=== PATIENT | male | born 1950 | race Caucasian/White ===

== ENCOUNTER 2016-11-25 10:33 | Emergency (ER) | payer OTHER ==
[~2016-11-25] VITALS: Ht 172.7 cm; Wt 81.5 kg
[~2016-11-25 10:33] MED LIST: CALCTAB94 PO; CARV6.252 PO; CLIN1CAP6 PO; FLUC100T2 PO; FOLI5CAP PO; FURO1TAB60 PO; HYDR-3516 PO; HYDR200T3 PO; JANT2TAB PO; LISI-519 PO; MULT-125 PO; OMEP20TA PO; PRAV40TA2 PO; PRED10 PO; SPIR25TA PO; TIZA4CAP3 PO; VENTAER INH; VITA100021 SL; [UNRECOGNIZED DRUG - CODE] TOPICAL
[2016-11-25 10:50] VITALS: BP 136/81; PULSE 87; RESP 20; TEMP 98.1; O2SAT 95
[2016-11-25] MEDS ORDERED: AZIT250T3 PO (11:05)
[2016-11-25] MEDS ORDERED: methylPREDNISolone SOD SUCC 125 MG/2 ML VIAL IVP ONE (12:00)
[2016-11-25] MEDS ORDERED: SODIUM CHLORIDE 0.9% FLUSH 10 ML FLUSH IVF PRN (12:00)
--- NOTE | 2016-11-25 12:04 | PD ---
HPI Chief Complaint: Cold / Flu Symptoms Time Seen by Provider: 11:50 Travel History International Travel<30 days: No Contact w/Intl Traveler<30days: No Traveled to known affect area: No History of Present Illness HPI 65-year-old male with history of CHF, stroke, CAD with stents, and DVT presents to the emergency room for evaluation of mildly productive cough, congestion for the past 4 days. Patient called his primary care physician at onset and was given a Z-Jose. States he finished the medication without any improvement in symptoms. He denies any subjective fevers. States he has problems with fluid on his lungs because of congestive heart failure. He was not given any other medications from his doctor. He has been taking [id number] cough drops. Reports associated chest pain and shortness of breath. Patient has chronic shortness of breath but it is worse than normal and now occurs at rest. States chest pain occurs with any movement or deep coughing. Patient drinks 7-8 beers per day. He has not smoked in over 20 years. 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 PFSH Past Medical History Arthritis: Yes Asthma: No Cancer: No Cardiovascular Problems: Yes High Cholesterol: No Chest Pain: No Congestive Heart Failure: No COPD: No Cerebrovascular Accident: Yes (2011) Diminished Hearing: Yes Endocrine: No Genitourinary: No Immune Disorder: No Musculoskeletal: Yes Neurologic: Yes Psychiatric: No Reproductive: No Respiratory: Yes Sleep Apnea: No Past Surgical History Body Medical Devices: filter Cardiac Surgery: No (filter for catching blood clot, cardiac stent) Joint Replacement: Yes (R HIP X 2) Social History Alcohol Use: No Tobacco Use: No Substance Use: No Allergies-Medications (Allergen,Severity, Reaction): Coded Allergies: penicillin G (Unverified Allergy, Unknown, 11/25/16) *MDRO Multi-Drug Resistant Organism (Verified Adverse Reaction, Unknown, ) MRSA PCR screen POSITIVE 03/04/16 Reported Meds & Prescriptions Reported Meds & Active Scripts Active Tessalon Perles (Benzonatate) 100 Mg Cap 100 Mg PO TID PRN Ventolin Hfa 18 GM Inh (Albuterol Sulfate) 90 Mcg/Act Aer 2 Puff INH Q6H PRN Lasix (Furosemide) 40 Mg Tab 40 Mg PO DAILY Reported Azithromycin 250 Mg Tab 250 Mg PO DAILY Ventolin Hfa 18 GM Inh (Albuterol Sulfate) 90 Mcg/Act Aer 2 Puff INH Q4-6H PRN Calcium 600 (Calcium Carbonate) 1,500 Mg Tab 1,500 Mg PO DAILY Hydroxychloroquine (Hydroxychloroquine Sulfate) 200 Mg Tab 200 Mg PO BID Takw with food Hydrocodone-Acetaminophen 5-325 mg Tab 1 Tab PO Q4H PRN Vitamin B-12 (Cyanocobalamin) 1,000 Mcg Subl 1,000 Mcg SL DAILY Tizanidine (Tizanidine HCl) 4 Mg Cap 4 Mg PO BID Omeprazole 20 Mg Tab 20 Mg PO DAILY Carvedilol 6.25 Mg Tab 6.25 Mg PO BID Prednisone 10 Mg Tab 10 Mg PO DAILY Jantoven (Warfarin) 2 Mg Tab 2 Mg PO DAILY Fluconazole 100 Mg Tab 100 Mg PO DAILY Pravastatin 40 Mg Tab 40 Mg PO DAILY Review of Systems Except as stated in HPI: all other systems reviewed are Neg Physical Exam Narrative GENERAL: Well-developed, well-nourished male in no acute distress. Afebrile. Ambulatory. SKIN: Focused skin assessment warm/dry. HEAD: Atraumatic. Normocephalic. EYES: Pupils equal and round. No scleral icterus. No injection or drainage. ENT: No nasal bleeding or discharge. Mucous membranes pink and moist. NECK: Trachea midline. No JVD. CARDIOVASCULAR: Regular rate and rhythm. No murmur appreciated. RESPIRATORY: Breath sounds equal bilaterally. There are scattered wheezes, rales, crackles, and rhonchi in all lung chan. Patient is using accessory muscles. NEUROLOGICAL: Awake and alert. No obvious cranial nerve deficits. Motor grossly within normal limits. Normal speech. PSYCHIATRIC: Appropriate mood and affect; insight and judgment normal. Data Data Last Documented VS Vital Signs Date Time Temp Pulse Resp B/P (MAP) Pulse Ox O2 Delivery O2 Flow Rate FiO2 11/25/16 14:23 86 20 167/106 (126) 96 11/25/16 12:28 Aerosol Mask 11/25/16 12:08 21 11/25/16 10:50 98.1 Orders Orders Complete Blood Count With Diff (11/25/16 11:58) Comprehensive Metabolic Panel (11/25/16 11:58) B-Type Natriuretic Peptide (11/25/16 11:58) Act Partial Throm Time (Ptt) (11/25/16 11:58) Prothrombin Time / Inr (Pt) (11/25/16 11:58) Troponin I (11/25/16 11:58) Influenzae A/B Antigen (11/25/16 11:58) Iv Access Insert/Monitor (11/25/16 11:58) Electrocardiogram (11/25/16 11:58) Ecg Monitoring (11/25/16 11:58) Oximetry (11/25/16 11:58) Oxygen Administration (11/25/16 11:58) Chest, Pa & Lat (11/25/16 11:58) Sodium Chloride 0.9% Flush (Ns Flush) (11/25/16 12:00) Methylprednisolone So Succ Inj (Solumedr (11/25/16 12:00) Albuterol-Ipratropium Neb (Duoneb Neb) (11/25/16 12:00) Labs Laboratory Tests Test 11/25/16 12:13 White Blood Count 10.9 TH/MM3 Red Blood Count 3.99 MIL/MM3 Hemoglobin 11.9 GM/DL Hematocrit 35.3 % Mean Corpuscular Volume 88.4 FL Mean Corpuscular Hemoglobin 29.9 PG Mean Corpuscular Hemoglobin Concent 33.9 % Red Cell Distribution Width 16.9 % Platelet Count 195 TH/MM3 Mean Platelet Volume 8.5 FL Neutrophils (%) (Auto) 77.0 % Lymphocytes (%) (Auto) 6.7 % Monocytes (%) (Auto) 10.9 % Eosinophils (%) (Auto) 1.1 % Basophils (%) (Auto) 4.3 % Neutrophils # (Auto) 8.4 TH/MM3 Lymphocytes # (Auto) 0.7 TH/MM3 Monocytes # (Auto) 1.2 TH/MM3 Eosinophils # (Auto) 0.1 TH/MM3 Basophils # (Auto) 0.5 TH/MM3 CBC Comment DIFF FINAL Differential Comment Prothrombin Time 22.8 SEC Prothromb Time International Ratio 2.0 RATIO Activated Partial Thromboplast Time 43.5 SEC Blood Urea Nitrogen 12 MG/DL Creatinine 1.20 MG/DL Random Glucose 112 MG/DL Total Protein 7.1 GM/DL Albumin 2.9 GM/DL Calcium Level 8.5 MG/DL Alkaline Phosphatase 116 U/L Aspartate Amino Transf (AST/SGOT) 18 U/L Alanine Aminotransferase (ALT/SGPT) 16 U/L Total Bilirubin 0.7 MG/DL Sodium Level 125 MEQ/L Potassium Level 4.9 MEQ/L Chloride Level 91 MEQ/L Carbon Dioxide Level 25.5 MEQ/L Anion Gap 9 MEQ/L Estimat Glomerular Filtration Rate 61 ML/MIN Troponin I LESS THAN 0.02 NG/ML B-Type Natriuretic Peptide 1879 PG/ML MDM Medical Decision Making Medical Screen Exam Complete: Yes Emergency Medical Condition: Yes Medical Record Reviewed: Yes Differential Diagnosis CHF exacerbation, pneumonia, bronchitis, upper respiratory infection, failed outpatient therapy Narrative Course 65 year-old male with a history of congestive heart failure presents to the emergency room for evaluation of mildly productive cough and congestion for the past 4 days. Patient denies history of fever. He took a course of azithromycin without improvement in symptoms. He is afebrile and well- appearing in the emergency room. Resting comfortably in bed. He does have increased work of breathing but pulse ox is 95% on room air. No cyanosis noted. IV access established and basic labs obtained. Patient placed on cardiac telemetry. Patient was given 125 IV Solu-Medrol and 3 DuoNebs with extreme improvement in symptoms. Pulse ox is now 96% on room air and patient has no increased work of breathing. CBC is reassuring with no leukocytosis. CMP reveals some hyponatremia which is consistent with patient's chronic alcoholism. Troponin is less than 0.02. BNP is elevated at 1879. Influenza is negative. There is no peripheral pitting edema. Chest x-ray shows no significant change from previous 10 months ago. EKG is unchanged from previous , signed off by my attending physician. I spoke to my attending physician, Dr. Smiley, about this patient's history and physical exam as well as laboratory studies and he recommends after such improvement from breathing treatments and with his stable vital signs, there is no indication for admission at this time. There is nothing more a hospitalization can do that patient cannot be treated at home with. He is already on Lasix. IV Lasix could cause worsening hyponatremia. Hospitalization increases risk for DVTs to move to lungs. There is no evidence of infection or failed outpatient therapy. He likely has chronic fluid overload with viral upper respiratory infection. Patient will be discharged with prescription for albuterol inhaler, Tesjoseon Em, and told to restrict fluid intake to 1200 mL's per 24 hours for the next several days. He was told to follow up this week with his primary care physician or return immediately for any worsening symptoms or continued shortness of breath. He understands and agrees to plan. Diagnosis Primary Impression: CHF (congestive heart failure) Qualified Codes: I50.9 - Heart failure, unspecified Referrals: Primary Care Physician Additional Instructions: Rest and drink plenty of fluids. Use albuterol as directed, as needed for shortness of breath. Take Tessalon Perles as directed, as needed for cough. Fluid restriction of 1200 mL per 24 hours for the next 5 days. Avoid drinking alcohol to improve your sodium and reduce your fluid overload. Follow up with a primary care physician. Return to emergency room for worsening symptoms, as discussed. Med/Other Pt SpecificInfo: Prescription(s) given Scripts Benzonatate (Tessalon Perles) 100 Mg Cap 100 MG PO TID Y for COUGH, #15 CAP 0 Refills Prov: Juan Smiley MD 11/25/16 Albuterol 18 GM Inh (Ventolin Hfa 18 GM Inh) 90 Mcg/Act Aer 2 PUFF INH Q6H Y for SHORTNESS OF BREATH, #1 INHALER 0 Refills Prov: Juan Smiley MD 11/25/16 Disposition: 01 DISCHARGE HOME Condition: Stable Gabby Willett Nov 25, 2016 12:04
[2016-11-25 12:08] VITALS: O2SAT 96
[2016-11-25] MEDS: RESP: ALBUTEROL 2.5 MG/IPRATROPIUM 0.5 MG NEB (SCH) INH (12:08)
[2016-11-25 12:17] LABS: AUTOMATED NEUTROPHIL # 8.4 TH/MM3 (1.8-7.7); BASOPHIL # 0.5 TH/MM3 (0-0.2); BASOPHIL % 4.3 % (0.0-2.0); EOSINOPHIL # 0.1 TH/MM3 (0-0.4); EOSINOPHIL % 1.1 % (0.0-4.0); HEMATOCRIT 35.3 % (39.0-51.0); HEMO FLAGS DIFF FINAL; LYMPH % 6.7 % (9.0-44.0); LYMPHOCYTE # 0.7 TH/MM3 (1.0-4.8); MEAN CELL VOLUME 88.4 FL (80.0-100.0); MEAN CORPUSCULAR HEMOGLOBIN 29.9 PG (27.0-34.0); MEAN CORPUSCULAR HGB CONC 33.9 % (32.0-36.0); MONO % 10.9 % (0.0-8.0); PLATELET COUNT 195 TH/MM3 (150-450); RED BLOOD COUNT 3.99 MIL/MM3 (4.50-5.90); RED CELL DISTRIBUTION WIDTH 16.9 % (11.6-17.2); WHITE BLOOD COUNT 10.9 TH/MM3 (4.0-11.0)
[2016-11-25 12:24] LABS: CHLORIDE 91 MEQ/L (98-107); POTASSIUM 4.9 MEQ/L (3.5-5.1); SODIUM (NA) 125 MEQ/L (136-145)
[2016-11-25 12:28] VITALS: O2SAT 100
[2016-11-25 12:28] LABS: ANION GAP 9 MEQ/L (5-15); BICARBONATE 25.5 MEQ/L (21.0-32.0); BLOOD UREA NITROGEN 12 MG/DL (7-18)
[2016-11-25 12:30] LABS: APTT (PATIENT) 43.5 SEC (24.3-30.1); PROTHROMBIN TIME - PATIENT 22.8 SEC (9.8-11.6)
[2016-11-25 12:31] LABS: ALT (GPT) 16 U/L (12-78); AST (GOT) 18 U/L (15-37); GLOMERULAR FILTRATION RATE 61 ML/MIN (>89)
[2016-11-25 12:32] LABS: TOTAL BILIRUBIN ADULT 0.7 MG/DL (0.2-1.0)
[2016-11-25 12:34] LABS: ALKALINE PHOSPHATASE 116 U/L (45-117)
--- NOTE | 2016-11-25 12:56 | RADRPT ---
EXAM DATE/TIME: 11/25/2016 12:40 [facility] COMPARISON: CHEST PA & LAT, March 03, 2016, 9:25. INDICATIONS : Cough, congestion, shorntess of breath, chest pain with movement or cough. MEDICAL HISTORY : Myocardial infarction. Congestive heart failure. Deep venous thrombosis. Hypertension. CVA. Dyspn ea. Arthritis. Osteoporosis. Heartburn. SURGICAL HISTORY : Left knee. Right hip replacement. Cardiac cath with stent. ENCOUNTER: Initial ACUITY: 4 - 6 days PAIN SCORE: 5/10 LOCATION: chest FINDINGS: Elevation of the right hemidiaphragm, interstitial prominence and parenchymal scarring again seen. Th ere is cardiomegaly. Osseous structures are intact. CONCLUSION: No significant change has occurred. Oz Sorensen MD on November 25, 2016 at 12:54 Board Certified Radiologist. This report was verified electronically.
[2016-11-25] MEDS ORDERED: BENZ100 PO (13:10)
[2016-11-25] MEDS ORDERED: VENTAER INH (13:10)
[2016-11-25 14:23] VITALS: BP 167/106
--- NOTE | 2016-11-26 13:46 | EKG ---
Date Performed: 11/25/2016 Time Performed: 12:21:32 PTAGE: 65 years EKG: Sinus rhythm POSSIBLE LEFT ATRIAL ENLARGEMENT SEPTAL MYOCARDIAL INFARCTION ABNORMAL ECG Compared to prior tracing no significant change PREVIOUS TRACING : 03/02/2016 18.53 DOCTOR: Shun Chris Interpretating Date/Time 11/26/2016 13:45:04
== END 2016-11-25 14:30 | disposition home or self-care (01) ==
LOC: PHEFT 10:33
DX: I50.9 Heart failure, unspecified (principal); E87.1 Hypo-osmolality and hyponatremia; R94.31 Abnormal electrocardiogram [ECG] [EKG]; Z79.01 Long term (current) use of anticoagulants; Z86.718 Personal history of other venous thrombosis and embolism; Z87.39 Personal history of other diseases of the musculoskeletal system and connective tissue; Z86.79 Personal history of other diseases of the circulatory system; Z86.69 Personal history of other diseases of the nervous system and sense organs
CPT/HCPCS: 71020; 80053; 83880; 84484; 85025; 85610; 85730; 87804; 93005; 94640; 94664; 96374; 99285; J2930

== ENCOUNTER 2016-12-26 03:28 | Inpatient (IN) | payer OTHER, MEDICARE ==
[2016-12-26] VITALS (33 sets, daily range): BP systolic 102–192; BP diastolic 50–99; PULSE 66–102; RESP 14–28; TEMP 97.5–99.6; O2SAT 94–100
[~2016-12-26] VITALS: Ht 172.7 cm; Wt 79.0 kg
[~2016-12-26 03:28] MED LIST changes: +AZIT250T3 PO; +BENZ100 PO; -CLIN1CAP6 PO; -FOLI5CAP PO; -LISI-519 PO; -MULT-125 PO; -SPIR25TA PO; -[UNRECOGNIZED DRUG - CODE] TOPICAL
[2016-12-26] MEDS ORDERED: SODIUM CHLOR 0.9% 1000 ML INJ 1,000 ML IV SCH ×2 (03:48→05:06)
--- NOTE | 2016-12-26 03:53 | PD ---
HPI Chief Complaint: GI Complaint Time Seen by Provider: 03:48 Travel History International Travel<30 days: No Contact w/Intl Traveler<30days: No Traveled to known affect area: No History of Present Illness HPI The patient is a 66-year-old male that noticed bright red blood in the stool in the last hour. 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 Last week he had 2 polyps removed with colonoscopy done by Dr. Diaz. He resumed his Coumadin on Friday. He denies any syncopal or near syncopal spells. He denies any nausea, vomiting, fever, diarrhea and states his stool is nothing but blood. He has a daily alcohol consumption of 4-7 beers daily. His last was tonight around 9 PM. He also has an IVC filter in place. PFSH Past Medical History Arthritis: Yes Asthma: No Cancer: No Cardiovascular Problems: Yes High Cholesterol: No Chest Pain: No Congestive Heart Failure: No COPD: No Cerebrovascular Accident: Yes (2011) Diminished Hearing: Yes Endocrine: No Genitourinary: No Immune Disorder: No Musculoskeletal: Yes Neurologic: Yes Psychiatric: No Reproductive: No Respiratory: Yes Sleep Apnea: No Past Surgical History Body Medical Devices: filter Cardiac Surgery: No (filter for catching blood clot, cardiac stent) Joint Replacement: Yes (R HIP X 2) Social History Alcohol Use: No Tobacco Use: No Substance Use: No Allergies-Medications (Allergen,Severity, Reaction): Coded Allergies: penicillin G (Unverified Allergy, Unknown, 12/26/16) *MDRO Multi-Drug Resistant Organism (Verified Adverse Reaction, Unknown, 12/26/16) MRSA PCR screen POSITIVE 03/04/16 Reported Meds & Prescriptions Reported Meds & Active Scripts Active Lasix (Furosemide) 40 Mg Tab 40 Mg PO DAILY Reported Ventolin Hfa 18 GM Inh (Albuterol Sulfate) 90 Mcg/Act Aer 2 Puff INH Q4-6H PRN Calcium 600 (Calcium Carbonate) 1,500 Mg Tab 1,500 Mg PO DAILY Hydroxychloroquine (Hydroxychloroquine Sulfate) 200 Mg Tab 200 Mg PO BID Takw with food Hydrocodone-Acetaminophen 5-325 mg Tab 1 Tab PO Q4H PRN Vitamin B-12 (Cyanocobalamin) 1,000 Mcg Subl 1,000 Mcg SL DAILY Tizanidine (Tizanidine HCl) 4 Mg Cap 4 Mg PO BID Omeprazole 20 Mg Tab 20 Mg PO DAILY Carvedilol 6.25 Mg Tab 6.25 Mg PO BID Prednisone 10 Mg Tab 10 Mg PO DAILY Jantoven (Warfarin) 2 Mg Tab 2 Mg PO DAILY Fluconazole 100 Mg Tab 100 Mg PO DAILY Pravastatin 40 Mg Tab 40 Mg PO DAILY Review of Systems Except as stated in HPI: all other systems reviewed are Neg Physical Exam Narrative GENERAL: The patient is alert, oriented 3 in no apparent distress. His vital signs show blood pressure 192/94 with a heart rate of 95 and respirations 24 but otherwise normal. SKIN: Focused skin assessment warm/dry. His skin and is black on the arms and legs, this is a condition that he has had since he was a teenager. HEAD: Atraumatic. Normocephalic. EYES: Pupils equal and round. No scleral icterus. No injection or drainage. ENT: No nasal bleeding or discharge. Mucous membranes pink and moist. NECK: Trachea midline. No JVD. CARDIOVASCULAR: Regular rate and rhythm. No murmur appreciated. RESPIRATORY: No accessory muscle use. Clear to auscultation. Breath sounds equal bilaterally. GASTROINTESTINAL: Abdomen soft, non-tender, nondistended. Hepatic and splenic margins not palpable. MUSCULOSKELETAL: No obvious deformities. No clubbing. No cyanosis. No edema. NEUROLOGICAL: Awake and alert. No obvious cranial nerve deficits. Motor grossly within normal limits. Normal speech. PSYCHIATRIC: Appropriate mood and affect; insight and judgment normal. RECTAL EXAM: No masses or tenderness, stool is dark red and strongly guaiac positive. Data Data Last Documented VS Vital Signs Date Time Temp Pulse Resp B/P (MAP) Pulse Ox O2 Delivery O2 Flow Rate FiO2 12/26/16 04:15 97.5 77 15 149/91 (110) 96 Room Air Orders Orders Complete Blood Count With Diff (12/26/16 03:48) Comprehensive Metabolic Panel (12/26/16 03:48) Lipase (12/26/16 03:48) Prothrombin Time / Inr (Pt) (12/26/16 03:48) Urinalysis - C+S If Indicated (12/26/16 03:48) Iv Access Insert/Monitor (12/26/16 03:48) Ecg Monitoring (12/26/16 03:48) Oximetry (12/26/16 03:48) Sodium Chlor 0.9% 1000 Ml Inj (Ns 1000 M (12/26/16 03:48) Sodium Chloride 0.9% Flush (Ns Flush) (12/26/16 04:00) Alcohol (Ethanol) (12/26/16 03:48) Type And Screen (12/26/16 04:26) Labs Laboratory Tests Test 12/26/16 04:00 White Blood Count 9.9 TH/MM3 Red Blood Count 3.73 MIL/MM3 Hemoglobin 10.9 GM/DL Hematocrit 33.3 % Mean Corpuscular Volume 89.1 FL Mean Corpuscular Hemoglobin 29.3 PG Mean Corpuscular Hemoglobin Concent 32.8 % Red Cell Distribution Width 16.3 % Platelet Count 254 TH/MM3 Mean Platelet Volume 8.4 FL Neutrophils (%) (Auto) 59.0 % Lymphocytes (%) (Auto) 22.1 % Monocytes (%) (Auto) 10.1 % Eosinophils (%) (Auto) 7.6 % Basophils (%) (Auto) 1.2 % Neutrophils # (Auto) 5.8 TH/MM3 Lymphocytes # (Auto) 2.2 TH/MM3 Monocytes # (Auto) 1.0 TH/MM3 Eosinophils # (Auto) 0.8 TH/MM3 Basophils # (Auto) 0.1 TH/MM3 CBC Comment DIFF FINAL Differential Comment Prothrombin Time 27.7 SEC Prothromb Time International Ratio 2.4 RATIO Blood Urea Nitrogen 11 MG/DL Creatinine 1.20 MG/DL Random Glucose 92 MG/DL Total Protein 6.6 GM/DL Albumin 2.8 GM/DL Calcium Level 8.2 MG/DL Alkaline Phosphatase 120 U/L Aspartate Amino Transf (AST/SGOT) 18 U/L Alanine Aminotransferase (ALT/SGPT) 19 U/L Total Bilirubin 0.2 MG/DL Sodium Level 127 MEQ/L Potassium Level 4.0 MEQ/L Chloride Level 95 MEQ/L Carbon Dioxide Level 23.0 MEQ/L Anion Gap 9 MEQ/L Estimat Glomerular Filtration Rate 61 ML/MIN Lipase 131 U/L Ethyl Alcohol Level 12 MG/DL MDM Medical Decision Making Medical Screen Exam Complete: Yes Emergency Medical Condition: Yes Medical Record Reviewed: Yes Interpretation(s) The lipase is 131. The alcohol level was 12. The sodium 137 and alkaline phosphatase 120 with an albumin of 2.8 and calcium 8.2. The GFR is only 61. The CBC shows a hemoglobin of 10.9 and hematocrit of 33.3. One month ago his hemoglobin was 11.9. The ProTime is 27.7 and the INR is 2.4. Differential Diagnosis Coumadin coagulopathy, lower GI bleed, electrolyte disorder, anemia, renal insufficiency, diverticular bleed, bleeding from recently excised polyp, upper GI bleed Narrative Course The patient has lower GI bleed. I cannot tell where it is coming from. The bleeding is significant and he feels the toilet full of bloody stool. The patient has now been to the toilet twice both with dark bloody stools and clots. The blood pressure at 0440 is 149/91 and heart rate is 77. The patient has not adjusted his blood to the bleeding at and he has not stopped bleeding, he will be admitted for [address] Fischer. Physician Communication Physician Communication I discussed the patient with a who was covering for Dr. Fischer, the patient will be admitted to Dr. Fischer for 23 hour observation. Diagnosis Primary Impression: GI bleed Additional Impression: Anemia Admitting Information Admitting Physician Requests: Observation Bart Da Silva MD Dec 26, 2016 03:53
[2016-12-26] MEDS ORDERED: SODIUM CHLORIDE 0.9% FLUSH 10 ML FLUSH IV FLUSH PRN ×2 (04:00→05:15)
[2016-12-26 04:10] LABS: AUTOMATED NEUTROPHIL # 5.8 TH/MM3 (1.8-7.7); BASOPHIL # 0.1 TH/MM3 (0-0.2); BASOPHIL % 1.2 % (0.0-2.0); EOSINOPHIL # 0.8 TH/MM3 (0-0.4); EOSINOPHIL % 7.6 % (0.0-4.0); HEMATOCRIT 33.3 % (39.0-51.0); HEMO FLAGS DIFF FINAL; LYMPH % 22.1 % (9.0-44.0); LYMPHOCYTE # 2.2 TH/MM3 (1.0-4.8); MEAN CELL VOLUME 89.1 FL (80.0-100.0); MEAN CORPUSCULAR HEMOGLOBIN 29.3 PG (27.0-34.0); MEAN CORPUSCULAR HGB CONC 32.8 % (32.0-36.0); MONO % 10.1 % (0.0-8.0); PLATELET COUNT 254 TH/MM3 (150-450); RED BLOOD COUNT 3.73 MIL/MM3 (4.50-5.90); RED CELL DISTRIBUTION WIDTH 16.3 % (11.6-17.2); WHITE BLOOD COUNT 9.9 TH/MM3 (4.0-11.0)
[2016-12-26 04:18] LABS: CHLORIDE 95 MEQ/L (98-107); SODIUM (NA) 127 MEQ/L (136-145)
[2016-12-26 04:21] LABS: INTERNATIONAL NORMALIZED RATIO 2.4 RATIO; PROTHROMBIN TIME - PATIENT 27.7 SEC (9.8-11.6)
[2016-12-26 04:22] LABS: ANION GAP 9 MEQ/L (5-15); BLOOD UREA NITROGEN 11 MG/DL (7-18)
[2016-12-26 04:23] LABS: ALCOHOL 12 MG/DL (0-5)
[2016-12-26 04:24] LABS: ALT (GPT) 19 U/L (12-78); AST (GOT) 18 U/L (15-37); GLOMERULAR FILTRATION RATE 61 ML/MIN (>89)
[2016-12-26 04:26] LABS: TOTAL BILIRUBIN ADULT 0.2 MG/DL (0.2-1.0)
[2016-12-26 04:27] LABS: ALKALINE PHOSPHATASE 120 U/L (45-117)
[2016-12-26] MEDS ORDERED: ONDANSETRON HCL 4 MG/2 ML VIAL IV PUSH PRN (05:15)
[2016-12-26] MEDS ORDERED: LORazepam 2 MG TAB PO PRN (05:30)
[2016-12-26] MEDS ORDERED: FLUMAZENIL 0.5 MG/5 ML VIAL IV PUSH PRN (05:30)
[2016-12-26] MEDS ORDERED: LORazepam 1 MG TAB PO PRN (05:30)
[2016-12-26] MEDS ORDERED: LORazepam 2 MG/ML VIAL IV PUSH PRN ×4 (05:30)
[2016-12-26] MEDS: THIAMINE INJ 100 MG in SODIUM CHLORIDE 0.9% INJ 100 ML IV SCH (06:40)
[2016-12-26] MEDS ORDERED: SODIUM CHLOR 0.9% 1000 ML INJ 1,000 ML IV ONE (08:00)
[2016-12-26] MEDS ORDERED: DEXT 5%-NACL 0.9% 1000 ML INJ 1,000 ML IV SCH (08:00)
[2016-12-26 08:31] LABS: HEMATOCRIT 24.4 % (39.0-51.0); REVIEW FLAG FINAL
[2016-12-26] MEDS ORDERED: MULTIVITAMIN INJ 10 ML, FOLIC ACID INJ 1 MG in SODIUM CHLORID 0.9% 500 ML INJ 500 ML IV SCH (09:00)
[2016-12-26] MEDS ORDERED: PHYTONADIONE INJ 10 MG in DEXTROSE 5% IN WATER INJ 50 ML IV ONE ×4 (09:00→15:00)
[2016-12-26] MEDS ORDERED: SODIUM CHLOR 0.9% 250 ML INJ 250 ML IV ONE ×2 (11:30)
--- NOTE | 2016-12-26 11:47 | HHI.HP ---
[facility] Service [facility] Primary Care Physician Sony Frazier DO Admission Diagnosis GI bleed, anemia Diagnoses: Chief Complaint: Rectal bleeding Travel History International Travel<30 Days: No Contact w/Intl Traveler <30 Da: No Traveled to Known Affected Are: No History of Present Illness This patient is a 66-year-old gentleman with a history of hypercoagulable syndrome on chronic Coumadin. He recently had an endoscopy with polypectomy completed . Prior to that he stopped his Coumadin and had resumed his Coumadin in the last few days. His INR is 2.4 and he presented to the emergency room with painless significant bright red blood per rectum. The patient has had 2 episodes at least of a large amount of bright red blood per rectum in the hospital. Patient's hemoglobin has gone from 10 to about 8 in the last couple of hours and he is complaining of dizziness and hypotension. He is transferred to the ICU for bleeding scan transfusion. He is comfortable without abdominal pain. There is no nausea or vomiting. He has never had an episode like this before. She does take immunosuppressants for rheumatoid arthritis. He normally lives with his family and has not been healed in the past several months. There has not been any diarrhea and no chest pain and the patient is seen in the room with his as well as nursing team. He is admitted to the hospital for further evaluation Review of Systems Constitutional: COMPLAINS OF: Fatigue, Dizziness, DENIES: Diaphoretic episodes , Fever, Weight gain, Weight loss, Chills, Change in appetite, Night Sweats Endocrine: DENIES: Heat/cold intolerance, Polydipsia, Polyuria, Polyphagia Eyes: DENIES: Blurred vision, Diplopia, Eye inflammation, Eye pain, Vision loss , Photosensitivity, Double Vision Ears, nose, mouth, throat: DENIES: Tinnitus, Hearing loss, Vertigo, Nasal discharge, Oral lesions, Throat pain, Hoarseness, Ear Pain, Running Nose, Epistaxis, Sinus Pain, Toothache, Odynophagia Respiratory: DENIES: Apneas, Cough, Snoring, Wheezing, Hemoptysis, Sputum production, Shortness of breath Cardiovascular: DENIES: Chest pain, Palpitations, Syncope, Dyspnea on Exertion , PND, Lower Extremity Edema, Orthopnea, Claudication Gastrointestinal: COMPLAINS OF: Bloody stools, DENIES: Abdominal pain, Black stools, Constipation, Diarrhea, Nausea, Vomiting, Difficulty Swallowing, Anorexia Genitourinary: DENIES: Sexual dysfunction, Urinary frequency, Urinary incontinence, Urgency, Hematuria, Dysuria, Nocturia, Penile Discharge, Testicular Pain, Testicular Swelling Musculoskeletal: DENIES: Joint pain, Muscle aches, Stiffness, Joint Swelling, Back pain, Neck pain Integumentary: DENIES: Abnormal pigmentation, Nail changes, Pruritus, Rash Hematologic/lymphatic: DENIES: Bruising, Lymphadenopathy Immunologic/allergic: DENIES: Eczema, Urticaria Neurologic: DENIES: Abnormal gait, Headache, Localized weakness, Paresthesias, Seizures, Speech Problems, Tremor, Poor Balance Psychiatric: DENIES: Anxiety, Confusion, Mood changes, Depression, Hallucinations, Agitation, Suicidal Ideation, Homicidal Ideation, Delusions Except as stated in HPI: all other systems reviewed are Neg Past Family Social History Past Medical History DVTs Hypertension Alcohol dependency Rheumatoid arthritis and RCA arthritis on immunosuppression Hyperlipidemia Past Surgical History Colonoscopy with recent polypectomy Right hip replacement 2 IVC filter Cardiac Reported Medications [facility] EMR, recently resumed his Coumadin Allergies: Coded Allergies: penicillin G (Unverified Allergy, Unknown, 12/26/16) *MDRO Multi-Drug Resistant Organism (Verified Adverse Reaction, Unknown, 12/26/16) MRSA PCR screen POSITIVE 03/04/16 Active Ordered Medications reviewed in the EMR Family History Family history of hypertension Social History No tobacco, alcohol daily, retired from [employer] Lives with his Physical Exam Vital Signs Vital Signs Date Time Temp Pulse Resp B/P (MAP) Pulse Ox O2 Delivery O2 Flow Rate FiO2 12/26/16 08:50 98.1 66 16 108/63 (78) 100 12/26/16 06:42 97.6 77 20 134/71 (92) 100 12/26/16 06:26 97.9 78 14 137/76 (96) 99 12/26/16 05:12 85 14 154/84 (107) 98 Room Air 12/26/16 04:15 97.5 77 15 149/91 (110) 96 Room Air 12/26/16 03:56 77 15 140/91 (107) 94 Room Air 12/26/16 03:31 97.5 95 24 192/94 (126) 99 Physical Exam Large amount of bright red blood per rectum GENERAL: This is a well-nourished, well-developed patient, in no apparent distress. Complaining of dizziness SKIN: No rashes, ecchymoses or lesions. Cool and dry. HEAD: Pale, Atraumatic. Normocephalic. No temporal or scalp tenderness. EYES: Pupils equal round and reactive. Extraocular motions intact. No scleral icterus. No injection or drainage. ENT: Nose without bleeding, purulent drainage or septal hematoma. Throat without erythema, tonsillar hypertrophy or exudate. Uvula midline. Airway patent. NECK: Trachea midline. No JVD or lymphadenopathy. Supple, nontender, no meningeal signs. CARDIOVASCULAR: Regular rate and rhythm without murmurs, gallops, or rubs. RESPIRATORY: Clear to auscultation. Breath sounds equal bilaterally. No wheezes , rales, or rhonchi. GASTROINTESTINAL: Abdomen soft, non-tender, nondistended. No hepato-splenomegaly , or palpable masses. No guarding. MUSCULOSKELETAL: Extremities without clubbing, cyanosis, or edema. No joint tenderness, effusion, or edema noted. No calf tenderness. Negative Homans sign bilaterally. NEUROLOGICAL: Awake and alert. Cranial nerves II through XII intact. Motor and sensory grossly within normal limits. Five out of 5 muscle strength in all muscle groups. Normal speech. Laboratory Laboratory Tests Test 12/26/16 04:00 12/26/16 08:20 White Blood Count 9.9 Red Blood Count 3.73 Hemoglobin 10.9 8.4 Hematocrit 33.3 24.4 Mean Corpuscular Volume 89.1 Mean Corpuscular Hemoglobin 29.3 Mean Corpuscular Hemoglobin Concent 32.8 Red Cell Distribution Width 16.3 Platelet Count 254 Mean Platelet Volume 8.4 Neutrophils (%) (Auto) 59.0 Lymphocytes (%) (Auto) 22.1 Monocytes (%) (Auto) 10.1 Eosinophils (%) (Auto) 7.6 Basophils (%) (Auto) 1.2 Neutrophils # (Auto) 5.8 Lymphocytes # (Auto) 2.2 Monocytes # (Auto) 1.0 Eosinophils # (Auto) 0.8 Basophils # (Auto) 0.1 CBC Comment DIFF FINAL Differential Comment Prothrombin Time 27.7 Prothromb Time International Ratio 2.4 Blood Urea Nitrogen 11 Creatinine 1.20 Random Glucose 92 Total Protein 6.6 Albumin 2.8 Calcium Level 8.2 Alkaline Phosphatase 120 Aspartate Amino Transf (AST/SGOT) 18 Alanine Aminotransferase (ALT/SGPT) 19 Total Bilirubin 0.2 Sodium Level 127 Potassium Level 4.0 Chloride Level 95 Carbon Dioxide Level 23.0 Anion Gap 9 Estimat Glomerular Filtration Rate 61 Lipase 131 Ethyl Alcohol Level 12 Result Diagram: 12/26/1681912/26/16399 Caprini VTE Risk Assessment Caprini VTE Risk Assessment: Mod/High Risk (score >= 2) VTE Pharm Contraindication: Active bleeding Caprini Risk Assessment Model Point Value = 1 Point Value = 2 Point Value = 3 Point Value = 5 Age 41-60 Minor surgery BMI > 25 kg/m2 Swollen legs Varicose veins or History of unexplained or recurrent spontaneous Oral contraceptives or hormone replacement Sepsis (< 1 month) Serious lung disease, including pneumonia (< 1 month) Abnormal pulmonary function Acute myocardial infarction Congestive heart failure (< 1 month) History of inflammatory bowel disease Medical patient at bed rest Age 61-74 Arthroscopic surgery Major open surgery (> 45 min) Laparoscopic surgery (> 45 min) Malignancy Confined to bed (> 72 hours) Immobilizing plaster cast Central venous access Age >= 75 History of VTE Family history of VTE Factor V Leiden Prothrombin [id number] Lupus anticoagulant Anticardiolipin antibodies Elevated serum homocysteine Heparin-induced thrombocytopenia Other congenital or acquired thrombophilia Stroke (< 1 month) Elective arthroplasty Hip, pelvis, or leg fracture Acute spinal cord injury (< 1 month) Prophylaxis Regimen Total Risk Factor Score Risk Level Prophylaxis Regimen 0-1 Low Early ambulation 2 Moderate Order ONE of the following: *Sequential Compression Device (SCD) *Heparin 5000 units SQ BID 3-4 Higher Order ONE of the following medications: *Heparin 5000 units SQ TID *Enoxaparin/Lovenox 40 mg SQ daily (WT < 150 kg, CrCl > 30 mL/min) *Enoxaparin/Lovenox 30 mg SQ daily (WT < 150 kg, CrCl > 10-29 mL/min) *Enoxaparin/Lovenox 30 mg SQ BID (WT < 150 kg, CrCl > 30 mL/min) AND/OR *Sequential Compression Device (SCD) 5 or more Highest Order ONE of the following medications: *Heparin 5000 units SQ TID (Preferred with Epidurals) *Enoxaparin/Lovenox 40 mg SQ daily (WT < 150 kg, CrCl > 30 mL/min) *Enoxaparin/Lovenox 30 mg SQ daily (WT < 150 kg, CrCl > 10-29 mL/min) *Enoxaparin/Lovenox 30 mg SQ BID (WT < 150 kg, CrCl > 30 mL/min) AND *Sequential Compression Device (SCD) Assessment and Plan Problem List: (1) GI bleed ICD Code: K92.2 - Gastrointestinal hemorrhage, unspecified Status: Acute Plan: Tagged bleeding scan pending CRS consulted Transfuse FFP/PRBC transfer to icu Serial HG (2) Anemia ICD Code: D64.9 - Anemia, unspecified Status: Acute Plan: Due to gi bleed Transfuse Assessment and Plan Significant GI bleeding, transferred to ICU as above Code Status dnr 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 In the case of services not specified as inpatient-only, they are appropriately provided as inpatient services in accordance with the 2-midnight benchmark. Estimated LOS (days): 3 3 days is the estimated time the patient will need to remain in the hospital, assuming treatment plan goals are met and no additional complications. Post-Hospital Plan: Yolanda Davis MD Dec 26, 2016 11:47
[2016-12-26 12:09] LABS: REVIEW FLAG FINAL
[2016-12-26 12:12] LABS: HEMATOCRIT 20.5 % (39.0-51.0)
[2016-12-26 17:37] LABS: REVIEW FLAG FINAL
[2016-12-26 17:39] LABS: HEMATOCRIT 19.3 % (39.0-51.0)
--- NOTE | 2016-12-26 18:06 | RADRPT ---
EXAM DATE/TIME: 12/26/2016 15:02 [facility] COMPARISON: No previous studies available for comparison. INDICATIONS : Rectal bleeding. DOSE: 21.8 mCi Tc99m Ultratag labeled red blood cells IV IMAGIN.5 Hrs. MEDICAL HISTORY : Deep venous thrombosis. Hypertension. Gastroesophageal reflux disease. Stroke. Hypercoagulable syndro me. SURGICAL HISTORY : Polypectomy. Right hip replacement. ENCOUNTER: Initial ACUITY: 3 days PAIN SCALE: 0/10 LOCATION: lower quadrant TECHNIQUE: Following the modified in vitro labeling of autologous red cells, dynamic continuous images were acqu ired for the specified interval. FINDINGS: There is very early appearance of significant activity in the proximal body or fundus region of the s tomach with propagation through the stomach and out into the proximal small bowel. The appearance is not that of untagged pertechnetate, rather this most likely represents a gastric site of hemorrhage. CONCLUSION: Suspect gastric site of GI bleeding Joaquín Castillo MD on December 26, 2016 at 18:02 Board Certified Radiologist. This report was verified electronically.
[2016-12-26] MEDS ORDERED: PANTOPRAZOLE INJ 80 MG in SODIUM CHLORIDE 0.9% INJ 100 ML IV SCH (18:30)
[2016-12-26] MEDS ORDERED: OCTREOTIDE INJ 100 MCG/ML VIAL IV ONE (18:45)
[2016-12-26] MEDS ORDERED: CHLORHEXIDINE GLUCONATE 2 % 1 PACK (2 CLOTHS)(extra cloths) TOPICAL PRN (18:45)
[2016-12-26] MEDS: SODIUM CHLORIDE 0.9% FLUSH 10 ML FLUSH IV FLUSH SCH ×2 (19:32→21:46)
[2016-12-26] MEDS: OCTREOTIDE INJ 500 MCG in SODIUM CHLORID 0.9% 500 ML INJ 499.5 ML IV SCH (19:40)
[2016-12-26] MEDS ORDERED: FUROSEMIDE 20 MG/2 ML VIAL IV PUSH ONE (21:30)
[2016-12-26] MEDS: PANTOPRAZOLE SODIUM 40 MG VIAL IV PUSH SCH (21:45)
[2016-12-26] MEDS: ACETAMINOPHEN/HYDROcodone 325 MG/5 MG TAB PO PRN (21:46)
[2016-12-27] VITALS (34 sets, daily range): BP systolic 86–171; BP diastolic 36–86; PULSE 72–120; RESP 17–45; TEMP 98–99.6; O2SAT 93–100
[2016-12-27] MEDS: CHLORHEXIDINE GLUCONATE 2 % 1 PACK (2 CLOTHS)(taper/protocol) TOPICAL SCH (00:54)
[2016-12-27 04:44] LABS: AUTOMATED NEUTROPHIL # 5.4 TH/MM3 (1.8-7.7); BASOPHIL # 0.3 TH/MM3 (0-0.2); BASOPHIL % 3.2 % (0.0-2.0); EOSINOPHIL # 0.5 TH/MM3 (0-0.4); EOSINOPHIL % 6.1 % (0.0-4.0); HEMATOCRIT 24.4 % (39.0-51.0); HEMO FLAGS DIFF FINAL; LYMPH % 13.4 % (9.0-44.0); LYMPHOCYTE # 1.1 TH/MM3 (1.0-4.8); MEAN CELL VOLUME 85.8 FL (80.0-100.0); MEAN CORPUSCULAR HEMOGLOBIN 29.3 PG (27.0-34.0); MEAN CORPUSCULAR HGB CONC 34.2 % (32.0-36.0); MONO % 9.3 % (0.0-8.0); PLATELET COUNT 138 TH/MM3 (150-450); RED BLOOD COUNT 2.84 MIL/MM3 (4.50-5.90); RED CELL DISTRIBUTION WIDTH 16.8 % (11.6-17.2); WHITE BLOOD COUNT 8.1 TH/MM3 (4.0-11.0)
[2016-12-27 05:13] LABS: BICARBONATE 26.5 MEQ/L (21.0-32.0)
[2016-12-27 05:37] LABS: CALCIUM-PROTEIN CORRECTED 8.3 MG/DL (8.5-10.1)
[2016-12-27] MEDS: OCTREOTIDE INJ 500 MCG in SODIUM CHLORID 0.9% 500 ML INJ 499.5 ML IV SCH (05:37)
[2016-12-27] MEDS: THIAMINE INJ 100 MG in SODIUM CHLORIDE 0.9% INJ 100 ML IV SCH (05:37)
[2016-12-27] MEDS: SODIUM CHLORIDE 0.9% FLUSH 10 ML FLUSH IV FLUSH SCH ×2 (08:33→20:17)
[2016-12-27] MEDS: PANTOPRAZOLE SODIUM 40 MG VIAL IV PUSH SCH (08:33)
[2016-12-27] MEDS ORDERED: PROPOFOL 200 MG/20 ML AMP IV PUSH ONE (10:15)
--- NOTE | 2016-12-27 10:31 | PD.PROCEDR ---
GI Procedure PROCEDURE PERFORMED Upper endoscopy, colonoscopy with bleeding control, snare polypectomy INDICATION FOR PROCEDURE Rectal bleed, positive bleeding scan PROCEDURE: The procedure, risks and benefits were discussed with Mr. Amor and informed consent was obtained. Anesthesia sedated him with Diprivan. He was placed in the left lateral decubitus position. EGD: The Pentax videoscope was introduced through the oropharynx and advanced to the second portion of the duodenum under direct visualization. Retroflexion was performed in the stomach. Colonoscopy: The Pentax videoscope was introduced through the rectum and advanced to cecum which was identified by the ileocecal valve the scope withdrawal but gradually in the transverse colon there was 1 polyp about 8 mm removed by hot snare, there was also a site of previous polypectomy from the last colonoscopy most likely that was done week ago that had adherent clot was some stigmata of bleeding the blood clot was removed and then the area was cauterized with heat to control the bleed, no active bleeding seen after that. Retroflexion was performed in the rectum. Colonic prep was suboptimal patient did not receive prepped FINDINGS: Stool mixed with blood throughout the colon 1 area of bleeding with clots in the transfer colon most likely site of previous polypectomy, patient had a colonoscopy last week with Dr. Leigh with snare polypectomy this was ablated with heat to control bleeding One small polyp removed by snare Diverticular disease mostly in the sigmoid SPECIMENS REMOVED: Colon polyp COMPLICATIONS: None IMPRESSION: Normal upper endoscopy Colon polyp removed via snare Diverticulosis Area of bleed from previous snare polypectomy cauterized There is a possibility of other sites of bleeding that they could not see but I did not see any active bleeding at this time PLAN: Clear liquid Hold anticoagulation for few days until we will we are ensure that there is no active bleeding Follow-up H&H with packed RBC as needed [] Wicho Kwok MD Dec 27, 2016 10:31
[2016-12-27] MEDS ORDERED: RESP: ALBUTEROL 2.5 MG/IPRATROPIUM 0.5 MG NEB (PRN) NEB (11:00)
--- NOTE | 2016-12-27 11:12 | HHI.PR ---
Subjective Remarks patient seen in follow up for GI bleed, HG is stable after 3 units BP improved and no further bleeding S/P panendoscopy with bleeding seen around prior polypectomy site, cauterized patient increased sob today and Objective Vitals Vital Signs Date Time Temp Pulse Resp B/P (MAP) Pulse Ox O2 Delivery O2 Flow Rate FiO2 12/27/16 10:38 76 18 113/58 (76) 100 12/27/16 08:01 98.4 12/27/16 08:00 84 12/27/16 07:00 74 12/27/16 07:00 98.4 74 19 131/72 (91) 97 12/27/16 06:00 80 18 121/62 (81) 96 12/27/16 06:00 80 12/27/16 05:00 72 17 113/54 (73) 98 12/27/16 04:04 88 33 104/59 (74) 99 12/27/16 04:00 98.9 72 17 86/47 (60) 96 12/27/16 03:53 76 17 104/54 (71) 96 12/27/16 03:49 98.9 76 17 104/54 96 12/27/16 03:00 84 20 134/72 (92) 96 12/27/16 02:00 92 20 160/83 (108) 98 12/27/16 01:00 94 22 167/86 (113) 98 12/27/16 00:36 98.4 97 20 158/85 98 12/27/16 00:21 99.6 97 20 164/83 100 12/27/16 00:15 99.4 94 20 157/82 (107) 98 12/27/16 00:13 99.4 92 20 157/82 99 12/27/16 00:01 94 22 159/86 (110) 99 12/26/16 23:01 98.3 92 22 151/77 (101) 97 12/26/16 23:00 97 12/26/16 22:01 102 22 164/82 (109) 99 12/26/16 21:37 98.8 100 24 159/86 97 12/26/16 21:37 98.6 102 20 159/86 (110) 99 12/26/16 21:30 99.0 96 18 149/77 (101) 99 12/26/16 21:17 99.6 96 18 149/76 100 12/26/16 21:17 99.6 94 21 149/76 (100) 99 12/26/16 21:00 98 23 160/81 (107) 99 12/26/16 20:00 99.1 97 22 152/72 (98) 99 12/26/16 20:00 99.1 97 22 152/72 99 12/26/16 19:36 98.8 90 22 147/75 100 12/26/16 19:21 98.1 92 22 156/99 100 12/26/16 19:21 98.1 92 22 156/99 (118) 100 12/26/16 18:00 92 21 99 12/26/16 17:44 90 24 148/74 (98) 100 12/26/16 17:35 97.9 90 20 148/74 100 12/26/16 17:20 97.7 90 20 140/67 100 12/26/16 17:00 92 18 100 12/26/16 16:54 102 28 140/67 (91) 98 12/26/16 16:00 90 12/26/16 15:35 98.2 86 18 120/60 100 12/26/16 15:00 78 17 136/71 (92) 99 12/26/16 14:46 86 18 133/58 (83) 100 12/26/16 14:46 98.4 87 19 133/58 100 12/26/16 14:23 98.3 79 20 102/50 100 12/26/16 14:00 82 20 102/50 (67) 100 12/26/16 13:39 86 24 105/52 (69) 100 12/26/16 13:00 78 17 100 12/26/16 12:30 78 12/26/16 12:14 116/60 (78) I/O 12/26/16 12/26/16 12/26/16 12/27/16 12/27/16 12/27/16 07:00 15:00 23:00 07:00 15:00 23:00 Intake Total 1000 ml 350 ml 3490 ml 1470 ml 500 ml Output Total 300 ml 1450 ml 725 ml Balance 1000 ml 350 ml 3190 ml 20 ml -225 ml Intake Oral 0 ml IV Total 1000 ml 1668 ml 751 ml Packed Cells 350 ml 619 ml FFP 681 ml Blood Product IV Normal Saline Flush 350 ml 791 ml 100 ml Other 0 ml 500 ml Output Urine Total 300 ml 1450 ml 725 ml # Voids 1 1 4 # Bowel Movements 1 1 0 0 Result Diagram: 12/27/1643112/27/16 043 Imaging Last Impressions GI Bleed Scan Nuclear Medicine 12/26/16 0000 Signed Impressions: Service Date/Time: December 15:02 - CONCLUSION: Suspect gastric site of GI bleeding Joaquín Castillo MD Objective Remarks Bilat ankle superficial healing wounds GENERAL: This is a well-nourished, well-developed patient, in no apparent distress. CARDIOVASCULAR: Regular rate and rhythm without murmurs, gallops, or rubs. RESPIRATORY: bibasilar crackles, otherwise Breath sounds equal bilaterally. No wheezes, rales, or rhonchi. GASTROINTESTINAL: Abdomen soft, non-tender, nondistended. Normal active bowel sounds MUSCULOSKELETAL: Extremities without clubbing, cyanosis, or edema. NEURO: Alert & Oriented x4 to person, place, time, situation. Moves all ext x4 Procedures panendoscopy A/P Problem List: (1) GI bleed ICD Code: K92.2 - Gastrointestinal hemorrhage, unspecified Status: Acute Plan: HG improved after transfusion of 3 units cauterized previous polypectomy site follow hg advance to clears, home meds, activity dc octreotide, iv PPI (2) Anemia ICD Code: D64.9 - Anemia, unspecified Status: Acute Plan: resolved after transfusion (3) Shortness of breath ICD Code: R06.02 - Shortness of breath Status: Acute Plan: Hx of dyspnea on MDI May be volume related, Duonebs and Lasix iv Echo 2016 shows Systolic HF with Ef 20-25% (4) ETOH abuse ICD Code: F10.10 - Alcohol abuse, uncomplicated Plan: ciwa protocol, PO vitamin support (5) Arthritis, rheumatoid ICD Code: M06.9 - Rheumatoid arthritis, unspecified Status: Acute Plan: resume prednisone/plaquenil OOB with nursing Discharge Planning if stable transfer to Med surg Yolanda Treviño MD Dec 27, 2016 11:12
--- NOTE | 2016-12-27 11:26 | MB ---
cc: KIMBERLY CHRISTOPHER M.D. DATE OF CONSULTATION 12/27/2016 DATE OF 1950 REASON FOR REFERRAL GI bleed. Thank you for the consultation for this 66-year-old gentleman who has a history of hypercoagulable states and on chronic Coumadin. Apparently the patient had a colonoscopy done by Dr. Diaz last week with polypectomy and the patient stated that two days ago he started having dark blood and bright red blood per rectum, large amount. He was started on Coumadin a few days ago. His INR was 2.4 on admission, he had bleeding scan which showed possible bleeding from the stomach in the midabdomen. The patient denied any complaints, laying in bed comfortably. He feels a little bit weak, but no other abnormality. No pain. No nausea, vomiting, no hematemesis. REVIEW OF SYSTEMS All 12-points negative except HPI. PAST MEDICAL HISTORY Significant for: 1. Hypertension 2. DVT 3. Alcohol dependency 4. Rheumatoid arthritis 5. Hyperlipidemia 6. Colonoscopy recently 7. IVC 8. Right hip replacement x2 9. Coronary artery disease MEDICATIONS Reviewed in the chart. ALLERGIES [facility] FAMILY HISTORY Significant for hypertension. SOCIAL HISTORY Negative for tobacco. No drugs. Positive for alcohol. PHYSICAL EXAMINATION Alert and oriented in no acute distress. VITAL SIGNS: Stable. HEENT: Pupils are round and reactive to light. NECK: Supple. CHEST: Clear to auscultation and proportion. CARDIAC: Regular rate and rhythm. No murmur or gallop. ABDOMEN: Soft, nondistended. Positive bowel sounds. EXTREMITIES: No edema, clubbing or cyanosis. NEUROLOGIC: Intact. PSYCHOLOGIC: Appropriate. RECTAL: Showed bright red blood per rectum. LABORATORY DATA White count 8.1, hemoglobin 6.9, went down to 6.5 and today is 8.3. INR 2.4. The patient received to FFP after that. Liver function tests normal. Lipase 131. Bleeding scan showed suspected gastric site of GI bleed. ASSESSMENT/PLAN A 66-year-old gentleman with GI bleed midabdomen could be the upper source according to the bleeding scan with severe anemia. I recommend doing upper endoscopy. We will plan on doing this today. If this is negative, we will try to do colonoscopy at the same time just to rule out possible source of bleeding from previous polypectomy site. The patient understands the plan and also his understands. We will proceed accordingly. We will monitor H&H with packed RBC as needed. MD CK Holguin/PAULIE /10:52 AM /11:09 AM
[2016-12-27] MEDS ORDERED: FUROSEMIDE 40 MG/4 ML VIAL IV PUSH ONE (11:30)
[2016-12-27] MEDS: ACETAMINOPHEN/HYDROcodone 325 MG/5 MG TAB PO PRN (12:47)
[2016-12-27] MEDS: SILVER SULFADIAZINE 1% CR 50 GM JAR TOPICAL SCH (14:37)
[2016-12-27] MEDS ORDERED: CARVEDILOL 6.25 MG TAB PO ONE (17:30)
[2016-12-27] MEDS: HYDROXYCHLOROQUINE SULFATE 200 MG TAB PO SCH (20:17)
[2016-12-27] MEDS ORDERED: CARVEDILOL 6.25 MG TAB PO SCH (21:00)
[2016-12-28] VITALS (29 sets, daily range): BP systolic 86–140; BP diastolic 38–82; PULSE 65–90; RESP 18–41; TEMP 97.6–99.5; O2SAT 96–100
[2016-12-28 03:32] LABS: BLOOD, URINE NEG (NEG); GLUCOSE,URINE NEG (NEG); KETONE, URINE NEG (NEG); NITRITE,URINE NEG (NEG)
[2016-12-28 03:41] LABS: RBC, URINE 0-3 /hpf (0-3); URINE COLOR AMBER (YELLW/STRAW); WBC, URINE 0-2 /hpf (0-5)
[2016-12-28 03:42] LABS: COMMENT (UR) CULT NOT INDICATED; CULTURE IF INDICATED CULT NOT INDICATED; SQUAMOUS EPITHELIAL CELL URINE 0-5 /hpf (0-5)
[2016-12-28] MEDS: ACETAMINOPHEN/HYDROcodone 325 MG/5 MG TAB PO PRN ×2 (03:48→22:32)
[2016-12-28] MEDS: CHLORHEXIDINE GLUCONATE 2 % 1 PACK (2 CLOTHS)(taper/protocol) TOPICAL SCH (03:49)
[2016-12-28 06:11] LABS: MEAN CELL VOLUME 86.4 FL (80.0-100.0); MEAN CORPUSCULAR HEMOGLOBIN 29.5 PG (27.0-34.0); MEAN CORPUSCULAR HGB CONC 34.2 % (32.0-36.0); PLATELET COUNT 158 TH/MM3 (150-450); RED BLOOD COUNT 2.89 MIL/MM3 (4.50-5.90); RED CELL DISTRIBUTION WIDTH 16.6 % (11.6-17.2); WHITE BLOOD COUNT 16.3 TH/MM3 (4.0-11.0)
[2016-12-28 06:15] LABS: POTASSIUM 3.6 MEQ/L (3.5-5.1)
[2016-12-28 06:18] LABS: BICARBONATE 28.1 MEQ/L (21.0-32.0); PROTHROMBIN TIME - PATIENT 11.3 SEC (9.8-11.6)
[2016-12-28 06:25] LABS: HEMO FLAGS AUTO DIFF
[2016-12-28 06:49] LABS: BANDS 1 % (0-6); NEUTROPHIL # MANUAL DIFF 14.3 TH/MM3 (1.8-7.7); POLYS (SEG NEUTROPHILS) 87 % (16-70); SCAN/DIFF FINAL DIFF MANUAL; WBC DIFF SAMPLE 100
[2016-12-28] MEDS ORDERED: FUROSEMIDE 40 MG TAB PO SCH (09:00)
[2016-12-28] MEDS: SODIUM CHLORIDE 0.9% FLUSH 10 ML FLUSH IV FLUSH SCH ×2 (09:00→19:56)
[2016-12-28] MEDS: predniSONE 10 MG TAB PO SCH (09:04)
[2016-12-28] MEDS: CARVEDILOL 6.25 MG TAB PO SCH ×2 (09:04→20:46)
[2016-12-28] MEDS: PANTOPRAZOLE SOD 40 MG DELAYED RELEASE TAB PO SCH (09:05)
[2016-12-28] MEDS: HYDROXYCHLOROQUINE SULFATE 200 MG TAB PO SCH ×2 (09:05→20:46)
[2016-12-28] MEDS: MULTIVITAMIN TAB PO SCH (09:06)
[2016-12-28] MEDS: THIAMINE HCL 100 MG TAB PO SCH (09:07)
[2016-12-28] MEDS: SILVER SULFADIAZINE 1% CR 50 GM JAR TOPICAL SCH (09:35)
[2016-12-28] MEDS ORDERED: INFLUENZA VIRUS VACCINE (QUADRIVALENT) 0.5 ML SYR IM ONE (10:00)
[2016-12-28] MEDS ORDERED: AZTREONAM INJ 1,000 MG in SODIUM CHLORIDE 0.9% INJ 100 ML IV SCH (11:00)
[2016-12-28] MEDS ORDERED: SODIUM CHLOR 0.9% 1000 ML INJ 1,000 ML IV ONE (11:00)
--- NOTE | 2016-12-28 11:11 | HHI.PR ---
Subjective Remarks Patient seen and evaluated today in follow-up for GI bleed. Some hypotension overnight and this morning. Patient appears a bit lethargic. Care plan discussed with [employer]. Blood pressure 7441. Patient has diuresed over 3 L after IV Lasix 1. Low-grade temperature of 99 with mild leukocytosis. Objective Vitals Vital Signs Date Time Temp Pulse Resp B/P (MAP) Pulse Ox O2 Delivery O2 Flow Rate FiO2 12/28/16 08:00 98.4 76 41 123/60 (81) 100 12/28/16 07:00 71 12/28/16 07:00 Nasal Cannula 2.00 12/28/16 06:00 136/82 (100) 12/28/16 05:00 97/44 (61) 12/28/16 04:00 99.2 80 18 109/45 (66) 100 12/28/16 03:00 93/46 (62) 12/28/16 02:00 86/49 (61) 12/28/16 01:00 89/54 (66) 12/28/16 00:00 83 12/28/16 00:00 99.5 76 24 91/38 (55) 98 12/27/16 23:00 94/43 (60) 12/27/16 22:00 93/36 (55) 12/27/16 21:00 87/46 (60) 12/27/16 20:55 Nasal Cannula 2.00 12/27/16 20:00 99.3 84 22 131/67 (88) 100 12/27/16 20:00 85 12/27/16 20:00 Room Air 12/27/16 19:55 98 Nasal Cannula 2.00 12/27/16 18:00 114 31 152/81 (104) 99 12/27/16 17:00 116 34 148/77 (100) 98 12/27/16 16:00 99.3 114 30 134/65 (88) 97 12/27/16 15:00 120 29 159/81 (107) 94 12/27/16 15:00 120 12/27/16 14:02 108 31 166/77 (106) 95 12/27/16 14:00 110 12/27/16 14:00 110 21 171/86 (114) 96 12/27/16 13:03 98.0 92 25 149/75 (99) 93 12/27/16 13:00 92 12/27/16 12:00 90 I/O 12/27/16 12/27/16 12/27/16 12/28/16 12/28/16 12/28/16 06:59 14:59 22:59 06:59 14:59 22:59 Intake Total 1470 ml 1277 ml 360 ml Output Total 1450 ml 725 ml 2015 ml 300 ml Balance 20 ml 552 ml -2015 ml 60 ml Intake Oral 360 ml IV Total 751 ml 777 ml 0 ml Packed Cells 619 ml Blood Product IV Normal Saline Flush 100 ml Other 500 ml Output Urine Total 1450 ml 725 ml 2015 ml 300 ml # Voids 4 # Bowel Movements 0 0 0 0 Result Diagram: 12/28/1655812/28/16558 Objective Remarks Bilat ankle superficial healing wounds GENERAL: This is a well-nourished, well-developed patient, in no apparent distress. CARDIOVASCULAR: Regular rate and rhythm without murmurs, gallops, or rubs. RESPIRATORY: bibasilar crackles, otherwise Breath sounds equal bilaterally. No wheezes, rales, or rhonchi. GASTROINTESTINAL: Abdomen soft, non-tender, nondistended. Normal active bowel sounds MUSCULOSKELETAL: Extremities without clubbing, cyanosis, or edema. NEURO: mildly lethargic, place, time, situation. Moves all ext x4 Procedures panendoscopy A/P Problem List: (1) GI bleed ICD Code: K92.2 - Gastrointestinal hemorrhage, unspecified Status: Acute Plan: HG improved after transfusion of 3 units cauterized previous polypectomy site follow hg advance TORSTEN, home meds, activity PPi po (2) Anemia ICD Code: D64.9 - Anemia, unspecified Status: Acute Plan: resolved after transfusion (3) Shortness of breath ICD Code: R06.02 - Shortness of breath Status: Acute Plan: Hx of dyspnea on MDI May be volume related, Duonebs diureses 3040 mL after lasix Echo 2016 shows Systolic HF with Ef 20-25% (4) ETOH abuse ICD Code: F10.10 - Alcohol abuse, uncomplicated Plan: ciwa protocol, PO vitamin support (5) Arthritis, rheumatoid ICD Code: M06.9 - Rheumatoid arthritis, unspecified Status: Acute Plan: resume prednisone/plaquenil hold OOB with nursing due to hypotension (6) Hypotension ICD Code: I95.9 - Hypotension, unspecified Plan: R/O sepsis Empiric Azactam, Vanco, Clinda BC x2 F/u leukocytosis, hypotension, low grade temp, metablolic encephalopathy may be over diuresed after lasix (out 3040 ml) slade hold lasix, BB, muscle relaxer d/w team keep in icu ekg Discharge Planning remain in icu Yolanda Treviño MD Dec 28, 2016 11:11
--- NOTE | 2016-12-28 11:56 | RADRPT ---
EXAM DATE/TIME: 12/28/2016 11:26 [facility] COMPARISON: CHEST PA & LAT, November 25, 2016, 12:40. INDICATIONS : Short of breath MEDICAL HISTORY : Hypertension. Arthritis. CVA SURGICAL HISTORY : Cardiac stent, knee, hip replacement ENCOUNTER: Initial ACUITY: 1 day PAIN SCORE: 0/10 LOCATION: Bilateral chest FINDINGS: The heart is normal in size. The lungs are clear. Visualized bony structures are grossly intact. CONCLUSION: 1. No acute cardiopulmonary findings. Tad Vo MD on December 28, 2016 at 11:54 Board Certified Radiologist. This report was verified electronically.
[2016-12-28] MEDS: AZTREONAM INJ 1,000 MG in SODIUM CHLORIDE 0.9% INJ 100 ML IV SCH ×2 (12:25→23:27)
[2016-12-28] MEDS: VANCOMYCIN INJ 1,000 MG in SODIUM CHLOR 0.9% 250 ML INJ 250 ML IV SCH ×2 (12:26→22:34)
[2016-12-28 12:37] LABS: HEMATOCRIT 21.1 % (39.0-51.0); REVIEW FLAG FINAL
[2016-12-28] MEDS ORDERED: SODIUM CHLOR 0.9% 1000 ML INJ 1,000 ML IV SCH (13:15)
[2016-12-28] MEDS: CLINDAMYCIN INJ 600 MG in SODIUM CHLORIDE 0.9% INJ 100 ML IV SCH ×2 (13:32→19:55)
--- NOTE | 2016-12-28 14:12 | EKG ---
Date Performed: 12/28/2016 Time Performed: 12:20:58 PTAGE: 66 years EKG: Sinus rhythm POSSIBLE RIGHT VENTRICULAR CONDUCTION DELAY SEPTAL MYOCARDIAL INFARCTION ABNORMAL ECG PREVIOUS TRACING : 11/25/2016 12.21 DOCTOR: Kenneth Deluca Interpretating Date/Time 12/28/2016 14:11:45
[2016-12-28 15:22] LABS: HEMATOCRIT 22.6 % (39.0-51.0); REVIEW FLAG FINAL
[2016-12-28] MEDS ORDERED: SODIUM CHLOR 0.9% 250 ML INJ 250 ML IV ONE (16:15)
[2016-12-29] VITALS (12 sets, daily range): BP systolic 107–175; BP diastolic 66–103; PULSE 81–94; RESP 18–38; TEMP 97.4–98.2; O2SAT 94–99
[2016-12-29] MEDS: CHLORHEXIDINE GLUCONATE 2 % 1 PACK (2 CLOTHS)(taper/protocol) TOPICAL SCH (04:00)
[2016-12-29] MEDS: CLINDAMYCIN INJ 600 MG in SODIUM CHLORIDE 0.9% INJ 100 ML IV SCH ×2 (04:00→13:47)
[2016-12-29 06:32] LABS: AUTOMATED NEUTROPHIL # 8.1 TH/MM3 (1.8-7.7); BASOPHIL # 0.1 TH/MM3 (0-0.2); BASOPHIL % 0.6 % (0.0-2.0); EOSINOPHIL # 0.5 TH/MM3 (0-0.4); EOSINOPHIL % 4.6 % (0.0-4.0); HEMO FLAGS DIFF FINAL; LYMPH % 11.5 % (9.0-44.0); LYMPHOCYTE # 1.3 TH/MM3 (1.0-4.8); MEAN CELL VOLUME 88.9 FL (80.0-100.0); MEAN CORPUSCULAR HEMOGLOBIN 29.4 PG (27.0-34.0); MEAN CORPUSCULAR HGB CONC 33.1 % (32.0-36.0); MONO % 10.7 % (0.0-8.0); NEUT % 72.6 % (16.0-70.0); PLATELET COUNT 169 TH/MM3 (150-450); RED BLOOD COUNT 3.15 MIL/MM3 (4.50-5.90); RED CELL DISTRIBUTION WIDTH 16.5 % (11.6-17.2); WHITE BLOOD COUNT 11.2 TH/MM3 (4.0-11.0)
[2016-12-29 06:40] LABS: POTASSIUM 3.8 MEQ/L (3.5-5.1)
[2016-12-29 06:43] LABS: BICARBONATE 26.9 MEQ/L (21.0-32.0)
[2016-12-29] MEDS ORDERED: THIAMINE HCL 100 MG TAB PO SCH (09:00)
--- NOTE | 2016-12-29 09:08 | HHI.PR ---
Subjective Remarks Patient seen and evaluated today in follow-up for GI bleeding. Hypotension improved. Status post blood transfusion with hemoglobin 9.3 today. Patient feels a lot better although that is a little bit short of breath. He does have CHF and examined inhaler for some sort of pulmonary disease which he says is not COPD. Patient is informed and updated on current progress and plan discussed with VEGETABLE SCULLION Objective Vitals Vital Signs Date Time Temp Pulse Resp B/P (MAP) Pulse Ox O2 Delivery O2 Flow Rate FiO2 12/29/16 07:00 Room Air 12/29/16 07:00 97.6 94 38 136/70 (92) 98 12/29/16 06:00 88 30 150/81 (104) 96 12/29/16 05:00 86 18 144/85 (104) 97 12/29/16 04:00 97.9 86 28 146/78 (100) 98 12/29/16 03:00 88 29 149/84 (105) 94 12/29/16 02:00 82 23 147/79 (101) 95 12/29/16 01:00 86 30 142/70 (94) 96 12/29/16 00:05 82 27 129/66 (87) 96 12/28/16 23:32 21 12/28/16 23:05 80 37 109/68 (82) 97 12/28/16 23:00 80 12/28/16 22:45 82 28 138/78 (98) 99 12/28/16 22:05 76 26 119/65 (83) 96 12/28/16 21:00 98.0 80 29 140/66 (90) 98 12/28/16 20:45 86 38 140/66 (90) 96 12/28/16 20:30 98 21 12/28/16 20:25 90 39 138/76 (96) 97 12/28/16 20:05 80 31 132/71 (91) 100 12/28/16 19:01 98 Room Air 12/28/16 19:01 98.0 85 18 117/55 (75) 98 12/28/16 18:06 82 28 109/58 (75) 97 12/28/16 17:39 78 33 112/65 (81) 98 12/28/16 17:04 98.0 72 26 116/63 99 12/28/16 16:38 97.8 73 24 123/65 100 12/28/16 16:00 72 24 109/57 (74) 100 12/28/16 15:38 97 12/28/16 15:00 76 12/28/16 15:00 76 38 110/57 (74) 100 12/28/16 14:01 74 112/73 (86) 99 12/28/16 13:01 97.6 65 20 96/51 (66) 96 12/28/16 12:00 97.6 68 38 88/50 (63) 98 I/O 12/28/16 12/28/16 12/28/16 12/29/16 12/29/16 12/29/16 07:00 15:00 23:00 07:00 15:00 23:00 Intake Total 360 ml 1250 ml 744 ml 660 ml Output Total 300 ml 1700 ml Balance 60 ml 1250 ml -956 ml 660 ml Intake Oral 360 ml 660 ml IV Total 0 ml 1250 ml 314 ml Packed Cells 400 ml Blood Product IV Normal Saline Flush 30 ml Output Urine Total 300 ml 1700 ml # Voids 7 4 # Bowel Movements 0 0 Result Diagram: 12/29/1660812/29/16608 Objective Remarks Bilat ankle superficial healing wounds GENERAL: This is a well-nourished, well-developed patient, in no apparent distress. CARDIOVASCULAR: Regular rate and rhythm without murmurs, gallops, or rubs. RESPIRATORY: Right greater than left fine crackles, good airflow. No wheezes, rales, or rhonchi. GASTROINTESTINAL: Abdomen soft, non-tender, nondistended. Normal active bowel sounds MUSCULOSKELETAL: Extremities without clubbing, cyanosis, or edema. NEURO: Alert and oriented to person place, time, situation. Moves all ext x4 Procedures panendoscopy A/P Problem List: (1) GI bleed ICD Code: K92.2 - Gastrointestinal hemorrhage, unspecified Status: Acute Plan: Status post transfusion yesterday of 1 unit HG improved (total of 4 units ) cauterized previous polypectomy site diet as tolerated, proton pump inhibitor (2) Anemia ICD Code: D64.9 - Anemia, unspecified Status: Acute Plan: Stable (3) Shortness of breath ICD Code: R06.02 - Shortness of breath Status: Acute Plan: Hx of "dyspnea " on MDI May be volume related, Duonebs Echo 2016 shows Systolic HF with Ef 20-25% Continue to follow, currently on room air (4) ETOH abuse ICD Code: F10.10 - Alcohol abuse, uncomplicated Plan: No evidence of withdrawal, continue vitamins DC protocol (5) Arthritis, rheumatoid ICD Code: M06.9 - Rheumatoid arthritis, unspecified Status: Acute Plan: resume prednisone/plaquenil Activity as tolerated (6) Hypotension ICD Code: I95.9 - Hypotension, unspecified Plan: R/O sepsis Empiric Azactam, Vanco, Clinda we will de-escalate in the next 24 hours BC x2 F/u leukocytosis, hypotension, low grade temp, metablolic encephalopathy may be over diuresed after lasix (out 3040 ml) resume muscle relaxer, beta liana d/w team Resolved, Discharge Planning remain in icu Yolanda Treviño MD Dec 29, 2016 09:08
[2016-12-29] MEDS: THIAMINE HCL 100 MG TAB PO SCH (09:09)
[2016-12-29] MEDS: CARVEDILOL 6.25 MG TAB PO SCH ×2 (09:09→21:11)
[2016-12-29] MEDS: predniSONE 10 MG TAB PO SCH (09:09)
[2016-12-29] MEDS: PANTOPRAZOLE SOD 40 MG DELAYED RELEASE TAB PO SCH (09:09)
[2016-12-29] MEDS: MULTIVITAMIN TAB PO SCH (09:09)
[2016-12-29] MEDS: HYDROXYCHLOROQUINE SULFATE 200 MG TAB PO SCH ×2 (09:10→21:11)
[2016-12-29] MEDS: SILVER SULFADIAZINE 1% CR 50 GM JAR TOPICAL SCH (09:11)
[2016-12-29] MEDS: AZTREONAM INJ 1,000 MG in SODIUM CHLORIDE 0.9% INJ 100 ML IV SCH (13:22)
[2016-12-29] MEDS: VANCOMYCIN INJ 1,000 MG in SODIUM CHLOR 0.9% 250 ML INJ 250 ML IV SCH (13:44)
[2016-12-29] MEDS: SODIUM CHLORIDE 0.9% FLUSH 10 ML FLUSH IV FLUSH SCH ×2 (13:45→21:12)
--- NOTE | 2016-12-29 16:56 | HHI.GIFU ---
GI Follow-up Note Consult Follow-up Subjective: Patient laying in bed comfortably, no further bleeding.Tolerated diet well. Hb stable .S/p prbc Objective: PHYSICAL EXAMINATION: Vitals signs stable No fever Vital Signs Date Time Temp Pulse Resp B/P (MAP) Pulse Ox O2 Delivery O2 Flow Rate FiO2 12/29/16 12:00 98.2 86 18 107/66 (80) 99 12/29/16 10:00 81 24 128/69 (88) 98 HEENT: Pupils round and reactive to light; normocephalic; atraumatic; no jaundice. Throat is clear. NECK: Neck is supple, no JVD, no lymphadenopathy. CHEST: Chest is clear to auscultation and percussion. CARDIAC: Regular rate and rhythm with no murmur gallop or rubs. ABDOMEN: Soft, nondistended, nontender; no hepatosplenomegaly; bowel sounds are present in all four quadrants. EXTREMITIES: No clubbing, cyanosis, mild edema with stasis dermatitis SKIN: Normal; no rash; no jaundice. FELT CHECKER: No focal deficits; alert and oriented times three. Available Data (labs, X- Rays, Procedues) : Laboratory Tests Test 12/28/16 03:20 12/28/16 05:59 12/28/16 12:07 12/28/16 15:12 Urine Color YESENIA Urine Turbidity CLEAR Urine pH 6.0 Urine Specific [place] 1.015 Urine Protein TRACE mg/dL Urine Glucose (UA) NEG mg/dL Urine Ketones NEG mg/dL Urine Occult Blood NEG Urine Nitrite NEG Urine Bilirubin NEG Urine Leukocyte Esterase NEG Urine RBC 0-3 /hpf Urine WBC 0-2 /hpf Urine Squamous Epithelial Cells 0-5 /hpf Urine Bacteria NONE /hpf Microscopic Urinalysis Comment CULT NOT INDICATED White Blood Count 16.3 TH/MM3 Red Blood Count 2.89 MIL/MM3 Hemoglobin 8.5 GM/DL 7.1 GM/DL 7.4 GM/DL Hematocrit 25.0 % 21.1 % 22.6 % Mean Corpuscular Volume 86.4 FL Mean Corpuscular Hemoglobin 29.5 PG Mean Corpuscular Hemoglobin Concent 34.2 % Red Cell Distribution Width 16.6 % Platelet Count 158 TH/MM3 Mean Platelet Volume 8.1 FL CBC Comment AUTO DIFF Differential Total Cells Counted 100 Neutrophils % (Manual) 87 % Band Neutrophils % 1 % Lymphocytes % 8 % Monocytes % 4 % Neutrophils # (Manual) 14.3 TH/MM3 Differential Comment FINAL DIFF MANUAL Prothrombin Time 11.3 SEC Prothromb Time International Ratio 1.0 RATIO Blood Urea Nitrogen 11 MG/DL Creatinine 1.30 MG/DL Random Glucose 104 MG/DL Calcium Level 7.5 MG/DL Sodium Level 131 MEQ/L Potassium Level 3.6 MEQ/L Chloride Level 96 MEQ/L Carbon Dioxide Level 28.1 MEQ/L Anion Gap 7 MEQ/L Estimat Glomerular Filtration Rate 55 ML/MIN Ammonia 31 MCMOL/L Troponin I 0.03 NG/ML Test 12/29/16 06:09 White Blood Count 11.2 TH/MM3 Red Blood Count 3.15 MIL/MM3 Hemoglobin 9.3 GM/DL Hematocrit 28.0 % Mean Corpuscular Volume 88.9 FL Mean Corpuscular Hemoglobin 29.4 PG Mean Corpuscular Hemoglobin Concent 33.1 % Red Cell Distribution Width 16.5 % Platelet Count 169 TH/MM3 Mean Platelet Volume 7.9 FL Neutrophils (%) (Auto) 72.6 % Lymphocytes (%) (Auto) 11.5 % Monocytes (%) (Auto) 10.7 % Eosinophils (%) (Auto) 4.6 % Basophils (%) (Auto) 0.6 % Neutrophils # (Auto) 8.1 TH/MM3 Lymphocytes # (Auto) 1.3 TH/MM3 Monocytes # (Auto) 1.2 TH/MM3 Eosinophils # (Auto) 0.5 TH/MM3 Basophils # (Auto) 0.1 TH/MM3 CBC Comment DIFF FINAL Differential Comment Blood Urea Nitrogen 11 MG/DL Creatinine 1.20 MG/DL Random Glucose 83 MG/DL Calcium Level 7.7 MG/DL Sodium Level 134 MEQ/L Potassium Level 3.8 MEQ/L Chloride Level 100 MEQ/L Carbon Dioxide Level 26.9 MEQ/L Anion Gap 7 MEQ/L Estimat Glomerular Filtration Rate 61 ML/MIN ASSESSMENT/PLAN: gi bleeding from previous polypectomy site s/p endoscopic treatment anemia secondary gi bleeding-sp prbc-stable Recommendations fu with dr Diaz 1-2 weeks fu pc 1 week to determine the need for snf anticoagulations ok to restart anticoagulation next week form gi point gi will sign off call us as needed fu gi as indicated It was a pleasure seeing Marshall Amor. Thank you for this consult. Entered by: Ijeoma Prado S. MD Dec 29, 2016 16:56
[2016-12-29] MEDS: ACETAMINOPHEN/HYDROcodone 325 MG/5 MG TAB PO PRN (21:11)
[2016-12-30 00:10] VITALS: BP 116/72; PULSE 75; RESP 18; TEMP 96.1; O2SAT 93
[2016-12-30] MEDS: CHLORHEXIDINE GLUCONATE 2 % 1 PACK (2 CLOTHS)(taper/protocol) TOPICAL SCH (04:00)
[2016-12-30 06:24] LABS: BASOPHIL # 0.1 TH/MM3 (0-0.2); BASOPHIL % 0.6 % (0.0-2.0); EOSINOPHIL # 0.6 TH/MM3 (0-0.4); EOSINOPHIL % 5.5 % (0.0-4.0); HEMATOCRIT 28.3 % (39.0-51.0); HEMO FLAGS DIFF FINAL; LYMPH % 12.3 % (9.0-44.0); LYMPHOCYTE # 1.2 TH/MM3 (1.0-4.8); MEAN CELL VOLUME 90.1 FL (80.0-100.0); MEAN CORPUSCULAR HEMOGLOBIN 29.1 PG (27.0-34.0); MEAN CORPUSCULAR HGB CONC 32.3 % (32.0-36.0); MONO % 10.5 % (0.0-8.0); NEUT % 71.1 % (16.0-70.0); PLATELET COUNT 190 TH/MM3 (150-450); RED BLOOD COUNT 3.15 MIL/MM3 (4.50-5.90)
[2016-12-30 06:36] LABS: POTASSIUM 3.6 MEQ/L (3.5-5.1)
[2016-12-30 06:39] LABS: BICARBONATE 26.6 MEQ/L (21.0-32.0)
[2016-12-30 09:15] VITALS: BP 146/85; PULSE 93; RESP 19; TEMP 95.5; O2SAT 96
[2016-12-30] MEDS: predniSONE 10 MG TAB PO SCH (09:59)
[2016-12-30] MEDS: PANTOPRAZOLE SOD 40 MG DELAYED RELEASE TAB PO SCH (09:59)
[2016-12-30] MEDS: CARVEDILOL 6.25 MG TAB PO SCH (09:59)
[2016-12-30] MEDS: MULTIVITAMIN TAB PO SCH (09:59)
[2016-12-30] MEDS: THIAMINE HCL 100 MG TAB PO SCH (09:59)
[2016-12-30] MEDS: HYDROXYCHLOROQUINE SULFATE 200 MG TAB PO SCH (09:59)
[2016-12-30] MEDS: SODIUM CHLORIDE 0.9% FLUSH 10 ML FLUSH IV FLUSH SCH (10:00)
[2016-12-30] MEDS: SILVER SULFADIAZINE 1% CR 50 GM JAR TOPICAL SCH (10:00)
--- NOTE | 2016-12-30 10:01 | HHI.DCPOC ---
Discharge Care Plan Diagnosis: (1) GI bleed (2) Anemia (3) Hypotension Goals to Promote Your Health * To prevent worsening of your condition and complications * To maintain your health at the optimal level Directions to Meet Your Goals Take your medications as prescribed Follow your dietary instruction Follow activity as directed Keep your appointments as scheduled Take your immunizations and boosters as scheduled If your symptoms worsen call your PCP, if no PCP go to Urgent Care Center or Emergency Room Smoking is Dangerous to Your Health. Avoid second hand smoke Call the 24-hour hour crisis hotline for domestic abuse at Yolanda Treviño MD Dec 30, 2016 10:01
--- NOTE | 2016-12-30 10:04 | HHI.DS ---
Discharge Summary Admission Date Dec 26, 2016 at 11:32 Discharge Date: Dec 30, 2016 Admitting Diagnosis GI bleed, anemia (1) GI bleed ICD Code: K92.2 - Gastrointestinal hemorrhage, unspecified Status: Acute (2) Anemia ICD Code: D64.9 - Anemia, unspecified Status: Acute (3) Shortness of breath ICD Code: R06.02 - Shortness of breath Status: Acute (4) ETOH abuse ICD Code: F10.10 - Alcohol abuse, uncomplicated (5) Arthritis, rheumatoid ICD Code: M06.9 - Rheumatoid arthritis, unspecified Status: Acute (6) Hypotension ICD Code: I95.9 - Hypotension, unspecified Procedures panendoscopy Brief History - From Admission This patient is a 66-year-old gentleman with a history of hypercoagulable syndrome on chronic Coumadin. He recently had an endoscopy with polypectomy completed . Prior to that he stopped his Coumadin and had resumed his Coumadin in the last few days. His INR is 2.4 and he presented to the emergency room with painless significant bright red blood per rectum. The patient has had 2 episodes at least of a large amount of bright red blood per rectum in the hospital. Patient's hemoglobin has gone from 10 to about 8 in the last couple of hours and he is complaining of dizziness and hypotension. He is transferred to the ICU for bleeding scan transfusion. He is comfortable without abdominal pain. There is no nausea or vomiting. He has never had an episode like this before. She does take immunosuppressants for rheumatoid arthritis. He normally lives with his family and has not been healed in the past several months. There has not been any diarrhea and no chest pain and the patient is seen in the room with his as well as nursing team. He is admitted to the hospital for further evaluation CBC/BMP: 12/30/16 0530 12/30/16 0530 Significant Findings Laboratory Tests Test 12/28/16 03:20 12/28/16 05:59 12/28/16 12:07 12/28/16 15:12 Urine Color YESENIA (YELLW/STRAW) White Blood Count 16.3 TH/MM3 (4.0-11.0) Red Blood Count 2.89 MIL/MM3 (4.50-5.90) Hemoglobin 8.5 GM/DL (13.0-17.0) 7.1 GM/DL (13.0-17.0) 7.4 GM/DL (13.0-17.0) Hematocrit 25.0 % (39.0-51.0) 21.1 % (39.0-51.0) 22.6 % (39.0-51.0) Neutrophils % (Manual) 87 % (16-70) Lymphocytes % 8 % (9-44) Neutrophils # (Manual) 14.3 TH/MM3 (1.8-7.7) Calcium Level 7.5 MG/DL (8.5-10.1) Sodium Level 131 MEQ/L (136-145) Chloride Level 96 MEQ/L (98-107) Estimat Glomerular Filtration Rate 55 ML/MIN (>89) Test 12/29/16 06:09 12/30/16 05:30 White Blood Count 11.2 TH/MM3 (4.0-11.0) Red Blood Count 3.15 MIL/MM3 (4.50-5.90) 3.15 MIL/MM3 (4.50-5.90) Hemoglobin 9.3 GM/DL (13.0-17.0) 9.1 GM/DL (13.0-17.0) Hematocrit 28.0 % (39.0-51.0) 28.3 % (39.0-51.0) Neutrophils (%) (Auto) 72.6 % (16.0-70.0) 71.1 % (16.0-70.0) Monocytes (%) (Auto) 10.7 % (0.0-8.0) 10.5 % (0.0-8.0) Eosinophils (%) (Auto) 4.6 % (0.0-4.0) 5.5 % (0.0-4.0) Neutrophils # (Auto) 8.1 TH/MM3 (1.8-7.7) Monocytes # (Auto) 1.2 TH/MM3 (0-0.9) 1.1 TH/MM3 (0-0.9) Eosinophils # (Auto) 0.5 TH/MM3 (0-0.4) 0.6 TH/MM3 (0-0.4) Calcium Level 7.7 MG/DL (8.5-10.1) 8.0 MG/DL (8.5-10.1) Sodium Level 134 MEQ/L (136-145) Estimat Glomerular Filtration Rate 61 ML/MIN (>89) 67 ML/MIN (>89) Random Glucose 73 MG/DL (74-106) PE at Discharge Bilat ankle superficial healing wounds GENERAL: This is a well-nourished, well-developed patient, in no apparent distress. CARDIOVASCULAR: Regular rate and rhythm without murmurs, gallops, or rubs. RESPIRATORY: Right greater than left fine crackles, good airflow. No wheezes, rales, or rhonchi. GASTROINTESTINAL: Abdomen soft, non-tender, nondistended. Normal active bowel sounds MUSCULOSKELETAL: Extremities without clubbing, cyanosis, or edema. NEURO: Alert and oriented to person place, time, situation. Moves all ext x4 Pt update on day of discharge Patient doing well. Hemoglobin stable. Discharge plans and plans for continuing to hold warfarin discussed with patient and spouse. Hospital Course Patient is a very pleasant 66-year-old gentleman who had a outpatient flexible sigmoidoscopy and ended up with some bleeding around the polypectomy site. The bleeding was quite severe and required initially3 units of packed blood cells. He also was taking warfarin and required 2 units of FFP to reverse the anticoagulation effect. Patient had in panendoscopy which showed bleeding around the polypectomy site and required cauterization. He was seen by gastroenterology team completions manager. The patient did well. He did develop some subsequent hypotension and required further transfusion of one more units of packed. Otherwise patient continued to improve. Pt Condition on Discharge: Good Discharge Disposition: Discharge Home Discharge Time: <= 30 minutes Discharge Instructions DIET: Follow Instructions for: Heart Healthy Diet Activities you can perform: Regular-No Restrictions Follow up Referrals: PCP Follow-up - 1 Week with tenzin Continued Medications: Albuterol 18 GM Inh (Ventolin Hfa 18 GM Inh) 90 Mcg/Act Aer 2 PUFF INH Q4-6H PRN for SHORTNESS OF BREATH, #1 INHALER 0 Refills Calcium Carbonate (Calcium 600) 1,500 Mg Tab 1500 MG PO DAILY, TAB Carvedilol (Carvedilol) 6.25 Mg Tab 6.25 MG PO BID, #60 TAB 0 Refills Cyanocobalamin (Vitamin B-12) 1,000 Mcg Subl 1000 MCG SL DAILY for Nutritional Supplement, TAB.SL 0 Refills Fluconazole (Fluconazole) 100 Mg Tab 100 MG PO DAILY for Infection, TAB 0 Refills Furosemide (Lasix) 40 Mg Tab 40 MG PO DAILY for CHF, #30 TAB Hydrocodone-Acetaminophen (Hydrocodone-Acetaminophen) 5-325 mg Tab 1 TAB PO Q4H PRN for PAIN, TAB 0 Refills Hydroxychloroquine (Hydroxychloroquine) 200 Mg Tab 200 MG PO BID, #60 TAB 0 Refills Takw with food Omeprazole (Omeprazole) 20 Mg Tab 20 MG PO DAILY, #30 TAB 0 Refills Pravastatin (Pravastatin) 40 Mg Tab 40 MG PO DAILY for Cholesterol Management, #30 TAB 0 Refills Prednisone (Prednisone) 10 Mg Tab 10 MG PO DAILY, TAB 0 Refills Tizanidine (Tizanidine) 4 Mg Cap 4 MG PO BID for Muscle Spasm, CAP 0 Refills Discontinued Medications: Warfarin (Jantoven) 2 Mg Tab 2 MG PO DAILY for Blood Clot Prevention, #30 TAB 0 Refills Yolanda Treviño MD Dec 30, 2016 10:04
[2016-12-30] MEDS: ACETAMINOPHEN/HYDROcodone 325 MG/5 MG TAB PO PRN (10:24)
== END 2016-12-30 11:30 | disposition home or self-care (01) | DRG 919 ==
LOC: PHED 03:28 → PHEDA 05:10 → PH5A 06:34 → OBSVTOIN 11:32 → PHICU 12:15 → PH3B 12-29 10:30
PROVIDERS: ADMIT Hospitalist; ATTEND Hospitalist
PROC: 30233K1 Transfusion of Nonautologous Frozen Plasma into Peripheral Vein, Percutaneous Approach (ICD-10-PCS; principal; 2016-12-26)
PROC: 30233N1 Transfusion of Nonautologous Red Blood Cells into Peripheral Vein, Percutaneous Approach (ICD-10-PCS; 2016-12-26)
PROC: 0DJ08ZZ Inspection of Upper Intestinal Tract, Via Natural or Artificial Opening Endoscopic (ICD-10-PCS; 2016-12-27)
PROC: 0DBL8ZZ Excision of Transverse Colon, Via Natural or Artificial Opening Endoscopic (ICD-10-PCS; 2016-12-27)
PROC: 0W3P8ZZ Control Bleeding in Gastrointestinal Tract, Via Natural or Artificial Opening Endoscopic (ICD-10-PCS; 2016-12-27)
PROC: 0D5L8ZZ Destruction of Transverse Colon, Via Natural or Artificial Opening Endoscopic (ICD-10-PCS; 2016-12-27)
DX: K91.840 Postprocedural hemorrhage of a digestive system organ or structure following a digestive system procedure (principal); G93.41 Metabolic encephalopathy; I95.9 Hypotension, unspecified; I11.0 Hypertensive heart disease with heart failure; I50.22 Chronic systolic (congestive) heart failure; K92.1 Melena; D62 Acute posthemorrhagic anemia; E78.5 Hyperlipidemia, unspecified; Z96.641 Presence of right artificial hip joint; M06.9 Rheumatoid arthritis, unspecified; I25.10 Atherosclerotic heart disease of native coronary artery without angina pectoris; H91.90 Unspecified hearing loss, unspecified ear; Z66 Do not resuscitate; K63.5 Polyp of colon; K57.90 Diverticulosis of intestine, part unspecified, without perforation or abscess without bleeding; F10.10 Alcohol abuse, uncomplicated; Z23 Encounter for immunization; Z86.718 Personal history of other venous thrombosis and embolism; Z79.01 Long term (current) use of anticoagulants; Z95.5 Presence of coronary angioplasty implant and graft; Z86.73 Personal history of transient ischemic attack (TIA), and cerebral infarction without residual deficits
CPT/HCPCS: 36430; 71010; 78278; 80048; 80053; 80307; 81001; 82140; 82948; 83690; 84155; 84484; 85007; 85014; 85018; 85025; 85027; 85610; 86850; 86900; 86901; 86920; 86927; 87040; 87641; 88305; 90686; 93005; 96360; A9560; C9113; J1940; J2060; J2354; J2405; J3370; J3411; J3430; J7030; J7040; J7042; J7050; J7512; P9016; P9017; Q2038

== ENCOUNTER 2017-09-10 04:34 | Observation (INO) | payer MEDICARE, OTHER ==
[~2017-09-10] VITALS: Ht 172.7 cm; Wt 75.0 kg
[2017-09-10] VITALS (16 sets, daily range): BP systolic 120–170; BP diastolic 61–99; PULSE 66–117; RESP 16–24; TEMP 96.6–99.3; O2SAT 92–100
[~2017-09-10 04:34] MED LIST changes: -AZIT250T3 PO; -BENZ100 PO; -JANT2TAB PO; -OMEP20TA PO; +OMEP20TA93 PO
--- NOTE | 2017-09-10 05:10 | PD ---
HPI Chief Complaint: Respiratory Symptoms Time Seen by Provider: 04:58 Travel History International Travel<30 days: No Contact w/Intl Traveler<30days: No Traveled to known affect area: No History of Present Illness HPI The patient is a 66-year-old male that complains of shortness of breath for the last 2 days. It got worse tonight. He has a history of both congestive heart failure and COPD. He denies any fever, chest pain or diarrhea. He does have a nonproductive cough. He states when he feels like this he usually has fluid in his lungs. He is on Lasix 20 mg twice daily. He also has a nebulizer machine at home with albuterol. He does not get oxygen at home. PFSH Past Medical History Arthritis: Yes Asthma: No Cancer: No Cardiovascular Problems: Yes High Cholesterol: No Chest Pain: No Congestive Heart Failure: No COPD: No Cerebrovascular Accident: Yes (2011) Diminished Hearing: Yes Deep Vein Thrombosis: Yes Endocrine: No Gastrointestinal Disorders: Yes (POLYPS) GERD: Yes Genitourinary: No Hypertension: Yes Immune Disorder: No Musculoskeletal: Yes Neurologic: Yes Psychiatric: No Reproductive: No Respiratory: Yes Sleep Apnea: No ?: Not Past Surgical History Body Medical Devices: IVC FILTER Cardiac Surgery: Yes (IVC FILTER ) Coronary Stent: Yes (2013) Joint Replacement: Yes (R HIP X 2) Other Surgery: Yes Social History Alcohol Use: Yes (4-7 BEERS DAILY) Tobacco Use: No Substance Use: No Allergies-Medications (Allergen,Severity, Reaction): Coded Allergies: penicillin G (Verified Allergy, Unknown, 09/10/17) Reported Meds & Prescriptions Reported Meds & Active Scripts Active Lasix (Furosemide) 40 Mg Tab 40 Mg PO DAILY Reported Ventolin Hfa 18 GM Inh (Albuterol Sulfate) 90 Mcg/Act Aer 2 Puff INH Q4-6H PRN Calcium 600 (Calcium Carbonate) 1,500 Mg Tab 1,500 Mg PO DAILY Hydroxychloroquine (Hydroxychloroquine Sulfate) 200 Mg Tab 200 Mg PO BID Takw with food Hydrocodone-Acetaminophen 5-325 mg Tab 1 Tab PO Q4H PRN Vitamin B-12 (Cyanocobalamin) 1,000 Mcg Subl 1,000 Mcg SL DAILY Tizanidine (Tizanidine HCl) 4 Mg Cap 4 Mg PO BID Omeprazole 20 Mg Tab 20 Mg PO DAILY Carvedilol 6.25 Mg Tab 6.25 Mg PO BID Prednisone 10 Mg Tab 10 Mg PO DAILY Fluconazole 100 Mg Tab 100 Mg PO DAILY Pravastatin 40 Mg Tab 40 Mg PO DAILY Review of Systems Except as stated in HPI: all other systems reviewed are Neg Physical Exam Narrative GENERAL: The patient is alert, oriented 3 in moderate respiratory distress. His vital signs show blood pressure 152/87 with respirations 24 and oximetry 92 % on room air. The temperature is 98.9. SKIN: Focused skin assessment warm/dry. HEAD: Atraumatic. Normocephalic. EYES: Pupils equal and round. No scleral icterus. No injection or drainage. ENT: No nasal bleeding or discharge. Mucous membranes pink and moist. NECK: Trachea midline. No JVD. CARDIOVASCULAR: Regular rate and rhythm. No murmur appreciated. RESPIRATORY: No accessory muscle use. Bilateral wheezes are heard at both bases. A few rales are heard.. Breath sounds equal bilaterally. GASTROINTESTINAL: Abdomen soft, non-tender, nondistended. Hepatic and splenic margins not palpable. MUSCULOSKELETAL: No obvious deformities. No clubbing. No cyanosis. The patient has discolored legs from chronic venous stasis. At this time he has no edema.. NEUROLOGICAL: Awake and alert. No obvious cranial nerve deficits. Motor grossly within normal limits. Normal speech. PSYCHIATRIC: Appropriate mood and affect; insight and judgment normal. Data Data Last Documented VS Vital Signs Date Time Temp Pulse Resp B/P (MAP) Pulse Ox O2 Delivery O2 Flow Rate FiO2 09/10/17 05:52 86 16 132/77 (95) 99 Nasal Cannula 2.00 09/10/17 04:39 98.9 Orders Orders Complete Blood Count With Diff (09/10/17 05:04) Comprehensive Metabolic Panel (09/10/17 05:04) B-Type Natriuretic Peptide (09/10/17 05:04) Troponin I (09/10/17 05:04) Iv Access Insert/Monitor (09/10/17 05:04) Electrocardiogram (09/10/17 05:04) Ecg Monitoring (09/10/17 05:04) Oximetry (09/10/17 05:04) Oxygen Administration (09/10/17 05:04) Chest, Pa & Lat (09/10/17 05:04) Sodium Chloride 0.9% Flush (Ns Flush) (09/10/17 05:15) Furosemide Inj (Lasix Inj) (09/10/17 05:15) Albuterol-Ipratropium Neb (Duoneb Neb) (09/10/17 05:15) Labs Laboratory Tests Test 09/10/17 05:00 White Blood Count 8.6 TH/MM3 Red Blood Count 3.93 MIL/MM3 Hemoglobin 12.2 GM/DL Hematocrit 36.9 % Mean Corpuscular Volume 93.9 FL Mean Corpuscular Hemoglobin 31.0 PG Mean Corpuscular Hemoglobin Concent 33.0 % Red Cell Distribution Width 15.2 % Platelet Count 269 TH/MM3 Mean Platelet Volume 8.6 FL Neutrophils (%) (Auto) 74.4 % Lymphocytes (%) (Auto) 12.9 % Monocytes (%) (Auto) 8.9 % Eosinophils (%) (Auto) 1.0 % Basophils (%) (Auto) 2.8 % Neutrophils # (Auto) 6.4 TH/MM3 Lymphocytes # (Auto) 1.1 TH/MM3 Monocytes # (Auto) 0.8 TH/MM3 Eosinophils # (Auto) 0.1 TH/MM3 Basophils # (Auto) 0.2 TH/MM3 CBC Comment DIFF FINAL Differential Comment Blood Urea Nitrogen 19 MG/DL Creatinine 1.40 MG/DL Random Glucose 75 MG/DL Total Protein 6.8 GM/DL Albumin 2.9 GM/DL Calcium Level 8.2 MG/DL Alkaline Phosphatase 184 U/L Aspartate Amino Transf (AST/SGOT) 39 U/L Alanine Aminotransferase (ALT/SGPT) 26 U/L Total Bilirubin 0.5 MG/DL Sodium Level 129 MEQ/L Potassium Level 4.3 MEQ/L Chloride Level 93 MEQ/L Carbon Dioxide Level 24.7 MEQ/L Anion Gap 11 MEQ/L Estimat Glomerular Filtration Rate 51 ML/MIN Troponin I 0.02 NG/ML B-Type Natriuretic Peptide 4061 PG/ML [facility] Medical Decision Making Medical Screen Exam Complete: Yes Emergency Medical Condition: Yes Medical Record Reviewed: Yes Interpretation(s) The EKG shows sinus rhythm with sinus arrhythmia but no acute ST elevation or depression. There is likely left ventricular hypertrophy. The ventricular rate is 86. The complete metabolic profile shows a BUN of 19, creatinine 1.4, GFR 51, albumin 2.9 with calcium 8.2 and alkaline phosphatase 184 with G OT 39 and sodium 129. The troponin I is normal. The CBC is normal except for hemoglobin of 12.2 and hematocrit of 36.9. The BNP is 4061. The chest x-ray shows cardiomegaly with probable pleural effusion Differential Diagnosis Congestive heart failure, COPD, pneumonia, pleural effusion, pulmonary embolus- unlikely, bronchitis, bronchospasm Narrative Course It is now 0 635 and the patient feels much better. He still is in respiratory distress Physician Communication Physician Communication I discussed the patient with Dr. Callejas, the patient will be admitted to her on the regular floor here at [place]. Diagnosis Primary Impression: CHF (congestive heart failure) Admitting Information Admitting Physician Requests: Admit Bart Da Silva MD Sep 10, 2017 05:10
[2017-09-10] MEDS ORDERED: SODIUM CHLORIDE 0.9% FLUSH 10 ML FLUSH IVF PRN (05:15)
[2017-09-10] MEDS ORDERED: FUROSEMIDE 100 MG/10 ML VIAL IVP ONE (05:15)
[2017-09-10] MEDS: RESP: ALBUTEROL 2.5 MG/IPRATROPIUM 0.5 MG NEB (SCH) INH ×2 (05:16→05:17)
[2017-09-10 05:23] LABS: AUTOMATED NEUTROPHIL # 6.4 TH/MM3 (1.8-7.7); BASOPHIL # 0.2 TH/MM3 (0-0.2); BASOPHIL % 2.8 % (0.0-2.0); EOSINOPHIL # 0.1 TH/MM3 (0-0.4); HEMATOCRIT 36.9 % (39.0-51.0); HEMOGLOBIN 12.2 GM/DL (13.0-17.0); LYMPH % 12.9 % (9.0-44.0); LYMPHOCYTE # 1.1 TH/MM3 (1.0-4.8); MEAN CELL VOLUME 93.9 FL (80.0-100.0); MEAN PLATELET VOLUME 8.6 FL (7.0-11.0); MONO % 8.9 % (0.0-8.0); MONOCYTE # 0.8 TH/MM3 (0-0.9); NEUT % 74.4 % (16.0-70.0); PLATELET COUNT 269 TH/MM3 (150-450); RED BLOOD COUNT 3.93 MIL/MM3 (4.50-5.90); RED CELL DISTRIBUTION WIDTH 15.2 % (11.6-17.2); WHITE BLOOD COUNT 8.6 TH/MM3 (4.0-11.0)
[2017-09-10 05:30] LABS: CHLORIDE 93 MEQ/L (98-107); SODIUM (NA) 129 MEQ/L (136-145)
[2017-09-10 05:33] LABS: ALBUMIN 2.9 GM/DL (3.4-5.0); BICARBONATE 24.7 MEQ/L (21.0-32.0); CALCIUM 8.2 MG/DL (8.5-10.1)
[2017-09-10 05:34] LABS: BLOOD UREA NITROGEN 19 MG/DL (7-18); GLUCOSE,RANDOM 75 MG/DL (74-106)
[2017-09-10 05:36] LABS: ALT (GPT) 26 U/L (12-78)
[2017-09-10 05:37] LABS: AST (GOT) 39 U/L (15-37); GLOMERULAR FILTRATION RATE 51 ML/MIN (>89)
[2017-09-10 05:38] LABS: TOTAL BILIRUBIN ADULT 0.5 MG/DL (0.2-1.0); TOTAL PROTEIN 6.8 GM/DL (6.4-8.2)
[2017-09-10 05:39] LABS: ALKALINE PHOSPHATASE 184 U/L (45-117)
[2017-09-10 05:41] LABS: TROPONIN I 0.02 NG/ML (0.02-0.05)
[2017-09-10] MEDS ORDERED: SODIUM CHLORIDE 0.9% FLUSH 10 ML FLUSH IV FLUSH PRN (06:45)
[2017-09-10] MEDS ORDERED: HEPARIN SODIUM - SQ 10,000 UNITS/ML VIAL SQ SCH (06:45)
--- NOTE | 2017-09-10 06:58 | RADRPT ---
EXAM DATE: 09/10/2017 6:23 AM EDT AGE/SEX: 66 years / Male INDICATIONS: Shortness of breath. CLINICAL DATA: This is the patient's initial encounter. Patient reports that signs and symptoms have been present for 1 day and indicates a pain score of 0/10. MEDICAL/SURGICAL HISTORY: . Hypertension. Arthritis. CVA . Cardiac stent. COMPARISON: [facility], CHEST PA & LAT, 11/25/2016. . FINDINGS: 2 view chest demonstrates the right hemidiaphragm is markedly elevated. Heart and mediastinum are sta ble. There is no focal infiltrate. There is no pneumothorax. Moderate arthritis right glenohumeral christine int. CONCLUSION: Stable elevated hemidiaphragm. Some overlying atelectasis. Left lung is clear. Electronically signed by: Goldy Maria MD 09/10/2017 6:56 AM EDT
[2017-09-10 07:00] LABS: BILIRUBIN, URINE NEG (NEG); BLOOD, URINE MOD (NEG); GLUCOSE,URINE NEG (NEG); KETONE, URINE NEG (NEG); NITRITE,URINE NEG (NEG); URINE COLOR YELLOW (YELLW/STRAW); URINE LEUKOCYTE ESTERASE NEG (NEG)
[2017-09-10 07:05] LABS: SQUAMOUS EPITHELIAL CELL URINE 0-5 /hpf (0-5)
--- NOTE | 2017-09-10 07:25 | EKG ---
Date Performed: 09/10/2017 Time Performed: 06:03:14 PTAGE: 66 years EKG: Sinus rhythm WITH SINUS ARRHYTHMIA POSSIBLE LEFT VENTRICULAR HYPERTROPHY POSSIBLE SEPTAL MYOCARDIAL INFARCTION AB NORMAL ECG PREVIOUS TRACING : 12/28/2016 12.20 DOCTOR: Goldy Villagomez Interpretating Date/Time 09/10/2017 07:23:03
[2017-09-10] MEDS ORDERED: WARF4TAB51 PO (08:51)
--- NOTE | 2017-09-10 08:52 | HHI.HP ---
HPI Service [facility] Primary Care Physician Sony Frazier, Admission Diagnosis Congestive heart failure, COPD with acute exacerbation Diagnoses: Chief Complaint: Shortness of breath Travel History International Travel<30 Days: No Contact w/Intl Traveler <30 Da: No Traveled to Known Affected Are: No History of Present Illness Mr. Amor is a pleasant 66-year-old male with a history of COPD, CHF, CAD who presents to the emergency department on 09/10/2017 due to shortness of breath that started to 2-3 days ago. Patient reports some cough but no chest pain, fever or chills. He reports orthopnea. He has been taking Lasix and denies any lower extremity edema. On arrival temperature 98.9F, pulse 93 respiration 20 blood pressure 152/87, pulse oximetry 95% on 2 L of oxygen. BNP was 4061. Patient was given IV Lasix in the ED. Review of Systems Except as stated in HPI: all other systems reviewed are Neg Past Family Social History Past Medical History Coronary artery disease, arthritis, CVA in 2012, colonic polyps. Past Surgical History IVC filter placement, right hip surgery 2. Reported Medications Lasix (Furosemide) 40 Mg Tab 40 Mg PO DAILY Reported Ventolin Hfa 18 GM Inh (Albuterol Sulfate) 90 Mcg/Act Aer 2 Puff INH Q4-6H PRN Calcium 600 (Calcium Carbonate) 1,500 Mg Tab 1,500 Mg PO DAILY Hydroxychloroquine (Hydroxychloroquine Sulfate) 200 Mg Tab 200 Mg PO BID Takw with food Hydrocodone-Acetaminophen 5-325 mg Tab 1 Tab PO Q4H PRN Vitamin B-12 (Cyanocobalamin) 1,000 Mcg Subl 1,000 Mcg SL DAILY Tizanidine (Tizanidine HCl) 4 Mg Cap 4 Mg PO BID Omeprazole 20 Mg Tab 20 Mg PO DAILY Carvedilol 6.25 Mg Tab 6.25 Mg PO BID Prednisone 10 Mg Tab 10 Mg PO DAILY Fluconazole 100 Mg Tab 100 Mg PO DAILY Pravastatin 40 Mg Tab 40 Mg PO DAILY Allergies: Coded Allergies: penicillin G (Verified Allergy, Unknown, 09/10/17) Family History Father had cancer, mother had myocardial infarction. Social History Patient drinks 4-7 beers a day. He quit smoking 25 years ago. Physical Exam Vital Signs Vital Signs Date Time Temp Pulse Resp B/P (MAP) Pulse Ox O2 Delivery O2 Flow Rate FiO2 09/10/17 08:11 18 80 140/80 (100) 97 Nasal Cannula 2.00 09/10/17 06:55 99.3 89 18 129/72 (91) 100 Nasal Cannula 2.00 09/10/17 06:55 89 09/10/17 05:52 86 16 132/77 (95) 99 Nasal Cannula 2.00 09/10/17 05:15 99 Nasal Cannula 2.00 09/10/17 04:50 24 98 Nasal Cannula 2.00 09/10/17 04:50 99 Nasal Cannula 2.00 09/10/17 04:50 98 18 170/99 (122) 98 Nasal Cannula 09/10/17 04:45 98 24 158/90 (112) 92 09/10/17 04:39 98.9 93 20 152/87 (108) 95 Physical Exam GENERAL: This is a well-nourished, well-developed patient, in no apparent distress. SKIN: No rashes, ecchymoses or lesions. Warm and dry. HEAD: Atraumatic. Normocephalic. No temporal or scalp tenderness. EYES: Pupils equal round and reactive. No injection or drainage. ENT: Nose without bleeding, purulent drainage or septal hematoma. Airway patent. NECK: Trachea midline. No lymphadenopathy. Supple, nontender, no meningeal signs. CARDIOVASCULAR: Regular rate and rhythm without murmurs, gallops, or rubs. No JVD. RESPIRATORY: Moderate air entry. GASTROINTESTINAL: Abdomen soft, non-tender, nondistended. No guarding. MUSCULOSKELETAL: Extremities without clubbing, cyanosis, or edema. NEUROLOGICAL: Awake and alert. Cranial nerves II through XII intact. No focal neurological deficits. Normal speech. Laboratory Laboratory Tests Test 09/10/17 05:00 09/10/17 06:30 White Blood Count 8.6 Red Blood Count 3.93 Hemoglobin 12.2 Hematocrit 36.9 Mean Corpuscular Volume 93.9 Mean Corpuscular Hemoglobin 31.0 Mean Corpuscular Hemoglobin Concent 33.0 Red Cell Distribution Width 15.2 Platelet Count 269 Mean Platelet Volume 8.6 Neutrophils (%) (Auto) 74.4 Lymphocytes (%) (Auto) 12.9 Monocytes (%) (Auto) 8.9 Eosinophils (%) (Auto) 1.0 Basophils (%) (Auto) 2.8 Neutrophils # (Auto) 6.4 Lymphocytes # (Auto) 1.1 Monocytes # (Auto) 0.8 Eosinophils # (Auto) 0.1 Basophils # (Auto) 0.2 CBC Comment DIFF FINAL Differential Comment Blood Urea Nitrogen 19 Creatinine 1.40 Random Glucose 75 Total Protein 6.8 Albumin 2.9 Calcium Level 8.2 Alkaline Phosphatase 184 Aspartate Amino Transf (AST/SGOT) 39 Alanine Aminotransferase (ALT/SGPT) 26 Total Bilirubin 0.5 Sodium Level 129 Potassium Level 4.3 Chloride Level 93 Carbon Dioxide Level 24.7 Anion Gap 11 Estimat Glomerular Filtration Rate 51 Troponin I 0.02 B-Type Natriuretic Peptide 4061 Urine Collection Type CLEAN CATCH Urine Color YELLOW Urine Turbidity CLEAR Urine pH 6.0 Urine Specific [place] 1.010 Urine Protein TRACE Urine Glucose (UA) NEG Urine Ketones NEG Urine Occult Blood MOD Urine Nitrite NEG Urine Bilirubin NEG Urine Urobilinogen 0.2 Urine Leukocyte Esterase NEG Urine RBC 4-9 Urine Squamous Epithelial Cells 0-5 Microscopic Urinalysis Comment CULT NOT INDICATED Urine Collection Time 0630 Result Diagram: 09/10/17 0500 09/10/17 0500 Imaging Last Impressions Chest X-Ray 09/10/17 0504 Signed Impressions: CONCLUSION: Stable elevated hemidiaphragm. Some overlying atelectasis. Left lung is clear. Caprini VTE Risk Assessment Caprini VTE Risk Assessment: No/Low Risk (score <= 1) Caprini Risk Assessment Model Point Value = 1 Point Value = 2 Point Value = 3 Point Value = 5 Age 41-60 Minor surgery BMI > 25 kg/m2 Swollen legs Varicose veins or History of unexplained or recurrent spontaneous Oral contraceptives or hormone replacement Sepsis (< 1 month) Serious lung disease, including pneumonia (< 1 month) Abnormal pulmonary function Acute myocardial infarction Congestive heart failure (< 1 month) History of inflammatory bowel disease Medical patient at bed rest Age 61-74 Arthroscopic surgery Major open surgery (> 45 min) Laparoscopic surgery (> 45 min) Malignancy Confined to bed (> 72 hours) Immobilizing plaster cast Central venous access Age >= 75 History of VTE Family history of VTE Factor V Leiden Prothrombin [id number] Lupus anticoagulant Anticardiolipin antibodies Elevated serum homocysteine Heparin-induced thrombocytopenia Other congenital or acquired thrombophilia Stroke (< 1 month) Elective arthroplasty Hip, pelvis, or leg fracture Acute spinal cord injury (< 1 month) Prophylaxis Regimen Total Risk Factor Score Risk Level Prophylaxis Regimen 0-1 Low Early ambulation 2 Moderate Order ONE of the following: *Sequential Compression Device (SCD) *Heparin 5000 units SQ BID 3-4 Higher Order ONE of the following medications: *Heparin 5000 units SQ TID *Enoxaparin/Lovenox 40 mg SQ daily (WT < 150 kg, CrCl > 30 mL/min) *Enoxaparin/Lovenox 30 mg SQ daily (WT < 150 kg, CrCl > 10-29 mL/min) *Enoxaparin/Lovenox 30 mg SQ BID (WT < 150 kg, CrCl > 30 mL/min) AND/OR *Sequential Compression Device (SCD) 5 or more Highest Order ONE of the following medications: *Heparin 5000 units SQ TID (Preferred with Epidurals) *Enoxaparin/Lovenox 40 mg SQ daily (WT < 150 kg, CrCl > 30 mL/min) *Enoxaparin/Lovenox 30 mg SQ daily (WT < 150 kg, CrCl > 10-29 mL/min) *Enoxaparin/Lovenox 30 mg SQ BID (WT < 150 kg, CrCl > 30 mL/min) AND *Sequential Compression Device (SCD) Assessment and Plan Problem List: (1) Acute exacerbation of CHF (congestive heart failure) ICD Code: I50.9 - Heart failure, unspecified Assessment and Plan Mr. Amor is a pleasant 66-year-old male with a history of COPD, CHF, CAD who presented to the emergency department due to shortness of breath. Chest x-ray indicates acute CHF exacerbation. Acute exacerbation of CHF Ischemic cardiomyopathy -Echocardiogram from February 2016 shows ejection fraction 20-25%. Patient follows up with the internal heart group. -Continue Lasix 40 mg twice daily. -We will consider torsemide upon discharge. COPD -continue supplemental oxygen, DuoNeb as needed. Elevated INR History of DVT -Patient has IVC filter. INR is 11.7. Will give vitamin K p.o. 5 mg once. -No evidence of bleeding. Full code. Warfarin. INR 11.7 today. Javon Shields DO Sep 10, 2017 08:52
[2017-09-10] MEDS ORDERED: LORazepam 1 MG TAB PO PRN (09:00)
[2017-09-10] MEDS ORDERED: LORazepam 2 MG/ML VIAL IV PUSH PRN ×4 (09:00)
[2017-09-10] MEDS ORDERED: LORazepam 2 MG TAB PO PRN (09:00)
[2017-09-10] MEDS: SODIUM CHLORIDE 0.9% FLUSH 10 ML FLUSH IV FLUSH SCH ×2 (09:00→21:41)
[2017-09-10] MEDS ORDERED: FLUMAZENIL 0.5 MG/5 ML VIAL IV PUSH PRN (09:00)
[2017-09-10 09:42] LABS: PROTHROMBIN TIME - PATIENT 116.5 SEC (9.8-11.6)
[2017-09-10 09:48] LABS: INTERNATIONAL NORMALIZED RATIO 11.7 RATIO
[2017-09-10] MEDS: ACETAMINOPHEN/HYDROcodone 325 MG/5 MG TAB PO PRN ×3 (10:05→21:41)
[2017-09-10] MEDS ORDERED: PHYTONADIONE 5 MG/SWFI 5 ML ORAL SYR PO ONE (10:30)
--- NOTE | 2017-09-10 16:52 | PD.WCN.NOT ---
Wound Consult Description: Wound consult ordered by for wound management. Communicated with: Joaquín FRANCO, Recommendation: 1. Cleanse bilateral lower extremities wounds with NORMAL SALINE ONLY.Pat dry 2. Apply Santyl 2mm thick to Right lower medial and lateral wound bases, Cover with moistened fluffed gauze/dry gauze secure with rolled gauze/paper tape.Change dressing daily or as needed for dislodgement/exudate management. 3. Apply Maxorb AG cut to fit wound base to Left medial venous ulcer cover with Optifoam basic secure with rolled gauze /paper tape.Change dressing every 5 days or as needed for dislodgement/exudate management. 4. Sign and date all dressings. 5. Follow up with out patient wound center. Additional Information: Patient was seen today by personal lines underwriter and Joaquín FRANCO [facility] for wound management.Patient alert and oriented x4 sitting up in bed resting.Dressing removed from lower extremities with out difficulty . Bilateral lower extremity venous ulcers cleansed with normal saline pat dry. Left medial ulcer measures 4.7cm x5.3cm x0.3cm Wound base is moist pink/red no granular tissue wound edges are well defined sloped with wound base.Wound is circular in shape.Periwound moist intact. Right LE medial ulcer measures 6.7cm x5.4cm x moist adhered yellow slough. wound edges are well defined sloped with wound base.Wound is circular in shape.Periwound moist intact. Right LE lateral ulcer measures 2.3cm x2.4cm x Dry yellow slough ,Wound edges are well defined and wound is circular in shape.Periwound moist intact. Left LE medial ulcer Maxorb AG cut to fit wound base applied and Calazime cream applied to periwound for moisture control.Wound covered with dry 4x4 gauze secured with rolled gauze paper tape. Right medial and lateral ulcer moistened fluffed gauze applied to wound bases and covered with dry gauze secured with rolled gauze paper tape till Santyl available and Joaquín FRANCO will apply Santyl to wound base and then moist to dry dressing. All dressings signed and dated.Patient states he 2would like to follow up with out patient wound center and get feet heeled. Kris Fuentes [facility] Sep 10, 2017 16:52
[2017-09-10] MEDS: FUROSEMIDE 40 MG/4 ML VIAL IV PUSH SCH (17:15)
[2017-09-10] MEDS: RESP: ALBUTEROL 2.5 MG/IPRATROPIUM 0.5 MG NEB (PRN) NEB ×2 (17:36→21:13)
[2017-09-10] MEDS: CARVEDILOL 6.25 MG TAB PO SCH (23:07)
[2017-09-11] VITALS: BP 163/100; PULSE 100; RESP 18; TEMP 98.3; O2SAT 95
[2017-09-11 04:00] VITALS: BP 135/85; PULSE 105; RESP 16; TEMP 98.3; O2SAT 96
[2017-09-11] MEDS: ACETAMINOPHEN/HYDROcodone 325 MG/5 MG TAB PO PRN (05:41)
[2017-09-11 06:25] LABS: AUTOMATED NEUTROPHIL # 8.2 TH/MM3 (1.8-7.7); BASOPHIL # 0.1 TH/MM3 (0-0.2); BASOPHIL % 0.9 % (0.0-2.0); EOSINOPHIL # 0.2 TH/MM3 (0-0.4); HEMATOCRIT 40.2 % (39.0-51.0); HEMOGLOBIN 13.2 GM/DL (13.0-17.0); LYMPH % 9.7 % (9.0-44.0); MEAN CELL VOLUME 93.6 FL (80.0-100.0); MEAN CORPUSCULAR HEMOGLOBIN 30.8 PG (27.0-34.0); MEAN CORPUSCULAR HGB CONC 32.9 % (32.0-36.0); MEAN PLATELET VOLUME 8.9 FL (7.0-11.0); MONO % 7.4 % (0.0-8.0); MONOCYTE # 0.8 TH/MM3 (0-0.9); PLATELET COUNT 238 TH/MM3 (150-450); RED BLOOD COUNT 4.29 MIL/MM3 (4.50-5.90); RED CELL DISTRIBUTION WIDTH 14.8 % (11.6-17.2); WHITE BLOOD COUNT 10.3 TH/MM3 (4.0-11.0)
[2017-09-11 06:48] LABS: ALBUMIN 2.8 GM/DL (3.4-5.0); ALKALINE PHOSPHATASE 176 U/L (45-117); ALT (GPT) 28 U/L (12-78); AST (GOT) 42 U/L (15-37); BICARBONATE 28.2 MEQ/L (21.0-32.0); BLOOD UREA NITROGEN 17 MG/DL (7-18); CALCIUM 8.1 MG/DL (8.5-10.1); CHLORIDE 92 MEQ/L (98-107); GLOMERULAR FILTRATION RATE 61 ML/MIN (>89); GLUCOSE,RANDOM 79 MG/DL (74-106); SODIUM (NA) 131 MEQ/L (136-145); TOTAL BILIRUBIN ADULT 0.8 MG/DL (0.2-1.0); TOTAL PROTEIN 6.7 GM/DL (6.4-8.2)
[2017-09-11 07:42] VITALS: O2SAT 97
[2017-09-11] MEDS: RESP: ALBUTEROL 2.5 MG/IPRATROPIUM 0.5 MG NEB (PRN) NEB (07:42)
[2017-09-11 08:00] VITALS: BP 156/90; PULSE 94; RESP 16; TEMP 98; O2SAT 96
[2017-09-11 08:09] VITALS: O2SAT 92
[2017-09-11] MEDS ORDERED: POTASSIUM CHLORIDE 10 MEQ CONTROLLED RELEASE TAB PO ONE (08:30)
--- NOTE | 2017-09-11 08:47 | HHI.PR ---
Subjective Remarks Follow up for Acute CHF exacerbation. Patient is currently doing well. No fever , chills. He is currently on room air. No CP, SOB. Objective Vitals Vital Signs Date Time Temp Pulse Resp B/P (MAP) Pulse Ox O2 Delivery O2 Flow Rate FiO2 09/11/17 08:09 92 21 09/11/17 07:42 97 Nasal Cannula 1.00 09/11/17 04:00 98.3 105 16 135/85 (102) 96 09/11/17 00:00 98.3 100 18 163/100 (121) 95 09/10/17 21:15 99 Nasal Cannula 1.00 09/10/17 20:00 96 09/10/17 20:00 97.5 117 18 170/87 (114) 96 09/10/17 17:38 94 Nasal Cannula 1.00 09/10/17 15:50 96.6 91 20 147/98 (114) 97 09/10/17 15:00 78 09/10/17 12:00 85 09/10/17 11:50 96.6 91 20 145/91 (109) 97 09/10/17 11:05 18 I/O 09/10/17 09/10/17 09/10/17 09/11/17 09/11/17 09/11/17 07:00 15:00 23:00 07:00 15:00 23:00 Intake Total 450 ml 480 ml Output Total 400 ml 600 ml 1560 ml 800 ml Balance -400 ml -600 ml -1110 ml -320 ml Intake Oral 450 ml 480 ml Output Urine Total 400 ml 600 ml 1560 ml 800 ml # Voids 2 1 1 # Bowel Movements 1 Result Diagram: 09/11/17 0509 09/11/17 0509 Imaging Last Impressions Chest X-Ray 09/10/17 0504 Signed Impressions: CONCLUSION: Stable elevated hemidiaphragm. Some overlying atelectasis. Left lung is clear. Objective Remarks GENERAL: Alert, Oriented x 3, NAD. SKIN: Warm and dry. HEAD: Normocephalic. EYES: No scleral icterus. No injection or drainage. NECK: Supple, trachea midline. No JVD or lymphadenopathy. CARDIOVASCULAR: Regular rate and rhythm without murmurs, gallops, or rubs. RESPIRATORY: Breath sounds equal bilaterally. No accessory muscle use. GASTROINTESTINAL: Abdomen soft, non-tender, nondistended. MUSCULOSKELETAL: No cyanosis, or edema. BACK: Nontender without obvious deformity. No CVA tenderness. Procedures None. A/P Problem List: (1) Acute exacerbation of CHF (congestive heart failure) ICD Code: I50.9 - Heart failure, unspecified Assessment and Plan Mr. Amor is a pleasant 66-year-old male with a history of COPD, CHF, CAD who presented to the emergency department due to shortness of breath. Chest x-ray indicates acute CHF exacerbation. Acute exacerbation of CHF Ischemic cardiomyopathy -Echocardiogram from February 2016 shows ejection fraction 20-25%. Patient follows up with the internal heart group. -Continue IV Lasix 40 mg twice daily. 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 Coulter) . His EF from May 2016 was 50%. - Will switch Lasix to Torsemide 10mg BID. Hypokalemia PANCHO - Creatinine improved from 1.4 to 1.2. K+ 2.9 today. Will give one dose of 30meq KCL Today. - Continue KCL 10meq Qday except first three days twice a day to replete Potassium - BMP, PT/INR within 7 days and 3-5 days respectively. COPD -continue supplemental oxygen, DuoNeb as needed. Elevated INR History of DVT -Patient has IVC filter. INR is 11.7 on admission. Received Vitamin K 5mg on 09/10/2017. INR today 1.6. -No evidence of bleeding. Lower ext wound - chronic. Patient will follow up with wound care clinic. Full code. Warfarin. INR 1.6 today. Okay to continue Warfarin upon discharge. Discharge patient to home Condition on discharge: Improved Heart healthy Diet as tolerated Ad Silvia activity Rx written: Torsemide 10 mg twice daily Potassium chloride 10 mEq daily - however, take twice a day for 3 days. Follow-up with primary care physician within 1 week and cardiology within 1 week. Wound care clinic within 1 week Problem Qualifiers (1) Acute exacerbation of CHF (congestive heart failure): Qualified Codes: I50.23 - Acute on chronic systolic (congestive) heart failure Javon Shields DO Sep 11, 2017 08:47
[2017-09-11] MEDS ORDERED: predniSONE 10 MG TAB PO SCH (09:00)
[2017-09-11] MEDS ORDERED: HYDROXYCHLOROQUINE SULFATE 200 MG TAB PO SCH (09:00)
[2017-09-11] MEDS: CARVEDILOL 6.25 MG TAB PO SCH (09:00)
[2017-09-11] MEDS ORDERED: PANTOPRAZOLE SOD 40 MG DELAYED RELEASE TAB PO SCH (09:00)
[2017-09-11 09:08] LABS: INTERNATIONAL NORMALIZED RATIO 1.6 RATIO
[2017-09-11] MEDS: SODIUM CHLORIDE 0.9% FLUSH 10 ML FLUSH IV FLUSH SCH (09:57)
[2017-09-11] MEDS: FUROSEMIDE 40 MG/4 ML VIAL IV PUSH SCH (09:57)
[2017-09-11] MEDS ORDERED: POTA1TAB4 PO (10:14)
[2017-09-11] MEDS ORDERED: TORS10TA2 PO (10:14)
[2017-09-11] MEDS ORDERED: K-TA10TA PO (10:26)
[2017-09-11] MEDS ORDERED: POTASSIUM CHLORIDE 20 MEQ CONTROLLED RELEASE TAB PO SCH (21:00)
== END 2017-09-11 10:52 | disposition home or self-care (01) ==
LOC: PHED 04:34 → INTOOBSV 06:41 → PHEDA 06:41 → PH3A 08:21
PROVIDERS: ADMIT Hospitalist; ATTEND Hospitalist
DX: I11.0 Hypertensive heart disease with heart failure (principal); I50.23 Acute on chronic systolic (congestive) heart failure; R06.03 Acute respiratory distress; I25.5 Ischemic cardiomyopathy; N17.9 Acute kidney failure, unspecified; E87.6 Hypokalemia; R79.1 Abnormal coagulation profile; L97.929 Non-pressure chronic ulcer of unspecified part of left lower leg with unspecified severity; L97.919 Non-pressure chronic ulcer of unspecified part of right lower leg with unspecified severity; I49.9 Cardiac arrhythmia, unspecified; R94.31 Abnormal electrocardiogram [ECG] [EKG]; I25.10 Atherosclerotic heart disease of native coronary artery without angina pectoris; J98.11 Atelectasis; K21.9 Gastro-esophageal reflux disease without esophagitis; H91.90 Unspecified hearing loss, unspecified ear; M19.90 Unspecified osteoarthritis, unspecified site; Z86.718 Personal history of other venous thrombosis and embolism; Z86.73 Personal history of transient ischemic attack (TIA), and cerebral infarction without residual deficits; Z87.891 Personal history of nicotine dependence; Z79.899 Other long term (current) drug therapy; Z79.01 Long term (current) use of anticoagulants
CPT/HCPCS: 71046; 80053; 81001; 83880; 84484; 85025; 85610; 93005; 94640; 94664; 96372; 96374; 96376; 99285; G0378; J1644; J1940; J7512